=== PATIENT | female | born 1945 | race Caucasian/White ===

== ENCOUNTER 2017-10-02 15:44 | Inpatient (IN) | payer MEDICARE ==
--- NOTE | 2017-10-02 17:35 | ED Physician Chart ---
ED Chief Complaint/HPI - Patient Information Date Seen:: 10/02/17 Time Seen:: 17:20 Chief Complaint:: anorexia, insomnia and shortness of breath History of Present Illness:: Patient's had anorexia, insomnia and shortness of breath since before . She arrived from [place] on that date but already had the just mentioned symptoms which have continued since then. She's had an about 12 pounds weight loss over last 3 months. She now weighs 61 pound. She also has difficulty walking. Historian:: Patient, Family Member ED Review of Systems - Review of Systems General/Constitutional: Weight loss, Weakness, Loss of appetite Skin: No skin lesions Head: No headache Eyes: No loss of vision ENT: No earache Neck: No neck pain, No swelling Cardio Vascular: No chest pain Pulmonary: No SOB GI: No nausea, No vomiting, No diarrhea Musculoskeletal: No bone or joint pain, No back pain Endocrine: No polyuria, No polydipsia Psychiatric: Prior psych history Hematopoietic: No bruising Allergic/Immuno: No urticaria Neurological: No syncope ED Past Medical History - Past Medical History Past Medical History: HTN, Dyslipidemia, Other (depression, anxiety, hyperlipidemia, dementia; left breast mass since 2003) Family History: Diabetes Melitus Social History: Non Smoker, No Alcohol Surgical History: None Psychiatricy History: Dementia Medication: Reviewed Family Medical History - Family Member Mother Age: 93 Ethnicity: Living Status: Hx Family Cancer: Yes (VAGINAL) Father Age: 79 Ethnicity: Living Status: Hx Family Diabetes: Yes ED Physical Exam - Physical Examination Other Gen/Cons comments:: Cachectic; in no acute distress Head: Atraumatic Eyes: Lids, conjuctiva normal Other Skin comments:: 3 cm hard mass superior left breast ENMT: Oropharynx nl Other ENMT comments:: Poor dental hygiene Neck: No nuchal rigidity Respiratory: Nl effort/Exclusion, Clear to Auscultation Cardio Vascular: RRR, No murmur, gallop, rubs, NL S1 S2 GI: No organomegaly, No hernia, Nondistended Other GI comments:: Scaphoid abdomen : No CVA tenderness Extremities: No tenderness or effusion Neuro/Psych: No focal deficits ED Labs/Radiology/EKG Results - Lab Results Results: Laboratory Results - last 24 hr 10/02/17 10/02/1718 15:54 17:58 17:58 WBC 8.0 RBC 3.85 Hgb 12.9 Hct 37.4 L MCV 97.0 MCH 33.5 H MCHC Differential 34.5 RDW 13.1 Plt Count 366 MPV 6.6 Neutrophils % [employer] Band Neutrophils % 10 Lymphocytes % [employer] Monocytes % [employer] Eosinophils % [employer] Basophils % [employer] Neutrophils (Manual) 79 Lymphocytes 5 L Monocytes 5 Eosinophils 1 Basophils 0 Platelet Estimate ADEQUATE Platelet Morphology NORMAL RBC Morph Micro Appear NORMAL Sodium 138 Potassium 3.7 Chloride 108 H Carbon Dioxide 25.0 Anion Gap 8.7 BUN 16 Creatinine 0.7 Est GFR ( Amer) TNP Est GFR (Non-Af Amer) TNP BUN/Creatinine Ratio 22.9 Glucose 134 H Calcium 9.1 Magnesium 2.4 Urine Source RANDOM Urine Color YELLOW Urine Clarity CLEAR Urine pH 7.0 Ur Specific [place] 1.010 Urine Protein NEGATIVE Urine Glucose (UA) NEGATIVE Urine Ketones TRACE Urine Blood NEGATIVE Urine Nitrate NEGATIVE Urine Bilirubin NEGATIVE Urine Urobilinogen 2.0 Ur Leukocyte Esterase NEGATIVE Urine RBC NONE SEEN Urine WBC NONE SEEN Ur Epithelial Cells NONE SEEN Urine Bacteria NONE SEEN - Radiology Results Results: Chest x-ray showed stool in the left upper quadrant; was otherwise negative. - EKG Interpretations Rate & Rhythm: normal sinus rhythm with a rate 85; normal axis; low voltage Comments:: Old septal myocardial infarction ED Septic Shock - . Is Septic Shock (SBP<90, OR Lactate>4 mmol\L) present?: No ED Reassessment (Disposition) - Reassessment Reassessment Condition:: Unchanged - Diagnosis Diagnosis:: Cachexia; left breast mass - Patient Disposition Admitted to:: Telemetry Admitting Medical Physician:: Pramod Cee Condition at Disposition:: Stable, Unchanged
[2017-10-02 18:04] LABS: HEMATOCRIT 37.4 % (41.0-60); HEMOGLOBIN 12.9 gm/dL (12-16); MEAN CORPUSCULAR HEMOGLOBIN 33.5 pg (27.0-31.0); MEAN CORPUSCULAR HGB CONC 34.5 pg (28.0-36.0); MEAN PLATELET VOLUME 6.6 fl; PLATELET COUNT 366 Th/cmm (150-400); RED BLOOD COUNT 3.85 Mil/cmm (3.80-5.20); RED CELL DISTRIBUTION WIDTH 13.1 % (11.5-20.0)
[2017-10-02 18:09] LABS: URINE MICROSCOPIC INDICATED? YES; URINE SOURCE RANDOM
[2017-10-02 18:13] LABS: URINE BILIRUBIN NEGATIVE (NEGATIVE); URINE BLOOD NEGATIVE (NEGATIVE); URINE GLUCOSE (UA) NEGATIVE (NEGATIVE); URINE KETONE TRACE mg/dL (NEGATIVE); URINE LEUKOCYTE ESTERASE NEGATIVE (NEGATIVE); URINE NITRATE NEGATIVE (NEGATIVE); URINE PROTEIN NEGATIVE (NEGATIVE)
[2017-10-02 18:21] LABS: ANION GAP 8.7 (7.0-16.0); BUN - UREA NITROGEN 16 mg/dL (7-25); CALCIUM SERUM 9.1 mg/dL (8.6-10.3); CHLORIDE 108 mEq/L (98-107); CREATININE - SERUM 0.7 mg/dL (0.6-1.2); GLUCOSE 134 mg/dL (70-105); MAGNESIUM 2.4 mg/dL (1.9-2.7); POTASSIUM SERUM 3.7 mEq/L (3.5-5.1); SODIUM SERUM 138 mEq/L (136-145)
[2017-10-02 18:26] LABS: URINE CLARITY CLEAR (CLEAR); URINE COLOR YELLOW
[2017-10-02 18:27] LABS: URINE BACTERIA NONE SEEN /hpf (NONE SEEN); URINE EPITHELIAL CELLS NONE SEEN /lpf (FEW); URINE RBC NONE SEEN /hpf (0-5); URINE WBC NONE SEEN /hpf (0-5)
[2017-10-02 19:04] LABS: TOTAL CELLS COUNTED 100
[2017-10-02 19:05] LABS: BAND NEUTROPHILE 10 % (0-10); BASOPHIL 0 % (0-3); EOSINOPHIL 1 % (0-5); LYMPHOCYTE 5 % (20-50); MONOCYTE 5 % (2-10); NEUTROPHILS 79 % (40-80); PLATELET ESTIMATE ADEQUATE (NORMAL); PLATELET MORPHOLOGY NORMAL (NORMAL)
[2017-10-02] MEDS ORDERED: Albuterol Nebulizer 2.5mg/3mL HHN STA (19:32)
[2017-10-02] MEDS ORDERED: Sodium Chloride 0.9% 500 ML IV ONE (22:12)
[2017-10-02 23:22] VITALS: BP 116/48
[2017-10-02] MEDS ORDERED: Pneumococcal Vaccine 0.5 mL Vial IM ONE (23:33)
[2017-10-03] MEDS: D5-0.45NS 1,000 ML IV SCH ×2 (01:40→15:00)
[2017-10-03 06:22] LABS: % EOSINOPHILS 0.3 % (0.0-5.0); % LYMPHOCYTES 6.7 % (20.0-50.0); % MONOCYTES 5.7 % (2.0-10.0); % NEUTROPHILS 87.3 % (40.0-80.0); HEMATOCRIT 35.1 % (41.0-60); HEMOGLOBIN 11.8 gm/dL (12-16); LYMPHOCYTE ABSOLUTE 0.4 Th/cmm (1.5-3.0); MEAN CELL VOLUME 97.3 fl (81-100); MEAN CORPUSCULAR HEMOGLOBIN 32.8 pg (27.0-31.0); MEAN CORPUSCULAR HGB CONC 33.7 pg (28.0-36.0); MEAN PLATELET VOLUME 6.9 fl; MONOCYTE ABSOLUTE 0.4 Th/cmm (0.3-1.0); NEUTROPHILE ABSOLUTE 5.8 Th/cmm (1.8-8.0); PLATELET COUNT 342 Th/cmm (150-400); RED BLOOD COUNT 3.61 Mil/cmm (3.80-5.20); WHITE BLOOD COUNT 6.6 Th/cmm (4.8-10.8)
[2017-10-03 06:38] LABS: CHOLESTEROL 159 mg/dL (<200); HDL -HIGH DENSITY LIPOPROTEIN 43 mg/dL (23-92); TRIGLYCERIDES 113 mg/dL (<150)
--- NOTE | 2017-10-03 08:14 | Diagnostic Imaging Report ---
Exam: Chest portable examination HISTORY: lung mass Findings: Portable examination of the chest at 1804 hours reviewed, no prior studies available comparison. Bony thorax is intact. Mediastinal structures midline the heart is not enlarged the costophrenic angles are clear. COPD changes are noted. There is evidence for multiple calcifications in the lateral chest wall most likely represent subcutaneous ossifications in the breast tissue clinical correlation recommended. Compression oh studies for be helpful. If clinically indicated CT examination of chest done be helpful. IMPRESSION: 1. COPD changes no acute disease Multiple subcutaneous calcifications appear to be in the left lateral chest wall or in breast tissue laterally. Clinical correlation recommended.
[2017-10-03 12:43] LABS: ALB/GLOB RATIO 1.6 (1.0-1.8); ALBUMIN 3.1 gm/dL (3.7-5.3); ALKALINE PHOSPHATASE 57 U/L (34-104); BILIRUBIN,TOTAL 0.6 mg/dL (0.3-1.0); BUN - UREA NITROGEN 8 mg/dL (7-25); CHLORIDE 108 mEq/L (98-107); CREATININE - SERUM 0.3 mg/dL (0.6-1.2); GLUCOSE 101 mg/dL (70-105); POTASSIUM SERUM 3.1 mEq/L (3.5-5.1); SGOT 15 U/L (13-39); SGPT/ALT 11 U/L (7-52); TOTAL PROTEIN,SERUM 5.1 gm/dL (6.0-8.3)
[2017-10-03 12:46] LABS: ANION GAP 7.1 (7.0-16.0); SODIUM SERUM 137 mEq/L (136-145)
[2017-10-03] MEDS ORDERED: VTE Chemical Prophylaxis Screen/Admission MC PRN (17:01)
--- NOTE | 2017-10-03 19:01 | Consultation ---
DATE OF CONSULTATION: 10/03/2017 HEMATOLOGY AND ONCOLOGY CONSULTATION REFERRING PHYSICIAN: Dr. Cee. REASON FOR CONSULTATION: Left breast mass. HISTORY OF PRESENT ILLNESS: The patient is a 72-year-old female who was admitted to the hospital with wasting syndrome and anorexia and failure to thrive. The chest x-ray reported left subcutaneous nodule, therefore I was asked to evaluate. PAST MEDICAL HISTORY: Hypertension, dyslipidemia, depression, anxiety, dementia, and left breast mass since 2003. MEDICATIONS: Reviewed. PHYSICAL EXAMINATION: GENERAL: The patient is cachectic, awake, not in respiratory distress. VITAL SIGNS: Stable. NECK: No lymphadenopathy. CHEST: Equal air entry. Left breast palpable mass, mobile. No axillary adenopathy. There is hyperpigmentation on the left side of the chest. Right breast unremarkable. ABDOMEN: Soft. EXTREMITIES: Wasted muscles. LABORATORY WORK: Liver functions is normal. White count and platelets normal. Hemoglobin 11.8. Potassium 3.1 after hydration. ASSESSMENT: Left breast mass. The patient is aware and refused biopsy in the past. The mass is mobile and most likely left breast cancer. I will obtain tumor marker CA 27-[address] scan of the chest, abdomen and pelvis. The patient does not have neurological symptoms to warrant doing a brain MRI and she opts no biopsy and therefore no treatment can be addressed without pathology diagnosis. Thank you Dr. Cee for the opportunity to participate in the care of this interesting case with you. JOB# [id number]
--- NOTE | 2017-10-03 19:45 | History and Physical ---
History of Present Illness - HPI Chief Complaint: weight loss, sob HPI: History of Present Illness:: This is a 72 year old female who has a 1 year history of weight loss and insomnia. According to patient just this week she has been having increase of sob and unable to sleep. She also states that she has lost 12lbs in a 3 month period. She complains of weakness and unable to walk as much. Patient also complains of epigastric pain. Vital Signs: Last Vital Signs Temp 98.0 F 10/03/17 10:00 Pulse 69 10/03/17 10:00 Resp 20 10/03/17 10:00 BP 114/57 10/03/17 10:00 Pulse Ox 95 10/03/17 10:00 Past Medical History Other History: HTN, Dyslipidemia, Other (depression, anxiety, hyperlipidemia, dementia; left breast mass since 2003) Family Medical History - Family Member Mother History Unknown: Yes Age: 93 Ethnicity: Living Status: Hx Family Cancer: Yes (VAGINAL) Father History Unknown: Yes Age: 79 Ethnicity: Living Status: Hx Family Diabetes: Yes Social History Smoke: No Alcohol: None Drugs: None Lives: With Family - Medications Home Medications: Home Medication Medication Instructions Recorded Type Lorazepam [Ativan] 0.5 tab PO DAILY 10/02/17 History - Allergies Allergies/Adverse Reactions: Allergies Allergy/AdvReac Type Severity Reaction Status Date / Time Penicillins [PCN] Allergy RASH Verified 10/02/17 18:09 Review of Systems - Review of Systems Constitutional: Report: Weakness, Other (weight loss) Eyes: Report: No Significant Respiratory: Report: Cough, SOB with Excertion Cardiovascular: Report: No Significant Neurological: Report: Weakness Physical Exam - Physical Exam HEENT: Report: Ears Nose Throat within normal limits Neck: Report: Within normal limits Cardiovascular Systems: Report: +s1/s2 noted Respiratory: Report: Breath Sounds are within normal limits Back: Report: Inspection of back is within normal limits. Skin: Report: Warm, Dry Neuro/Psych: Report: Mood affect is within normal limits - Lab Results All Lab Results last 24 hours: Laboratory Results - last 24 hr 10/03/17 10/03/17 10/03/17 06:10 06:10 06:10 WBC 6.6 RBC 3.61 L Hgb 11.8 L Hct 35.1 L MCV 97.3 MCH 32.8 H MCHC Differential 33.7 RDW 13.0 Plt Count 342 MPV 6.9 Neutrophils % 87.3 H Lymphocytes % 6.7 L Monocytes % 5.7 Eosinophils % 0.3 Basophils % 0.0 Sodium Cancelled Potassium Cancelled Chloride Cancelled Carbon Dioxide Cancelled Anion Gap Cancelled BUN Cancelled Creatinine Cancelled Est GFR ( Amer) Cancelled Est GFR (Non-Af Amer) Cancelled BUN/Creatinine Ratio Cancelled Glucose Cancelled Calcium Cancelled Total Bilirubin AST ALT Alkaline Phosphatase Total Protein Albumin Globulin Albumin/Globulin Ratio Triglycerides 113 Cholesterol 159 LDL Cholesterol Direct 104 HDL Cholesterol 43 TSH 2.82 10/03/17 06:10 WBC RBC Hgb Hct MCV MCH MCHC Differential RDW Plt Count MPV Neutrophils % Lymphocytes % Monocytes % Eosinophils % Basophils % Sodium 137 Potassium 3.1 L Chloride 108 H Carbon Dioxide 25.0 Anion Gap 7.1 BUN 8 Creatinine 0.3 L Est GFR ( Amer) TNP Est GFR (Non-Af Amer) TNP BUN/Creatinine Ratio 26.7 Glucose 101 Calcium 8.0 L Total Bilirubin 0.6 AST 15 ALT 11 Alkaline Phosphatase 57 Total Protein 5.1 L Albumin 3.1 L Globulin 2.0 Albumin/Globulin Ratio 1.6 Triglycerides Cholesterol LDL Cholesterol Direct HDL Cholesterol TSH - Assessment Assessment: malnutrition anorexia hypotension copd hx left breast mass - Plan Plan: hematology/oncology consultation ivf for hydration supplemental oxygen gi consultation continue current orders
[2017-10-04 06:46] LABS: % BASOPHILS 0.6 % (0.0-2.0); % EOSINOPHILS 0.3 % (0.0-5.0); % MONOCYTES 7.3 % (2.0-10.0); % NEUTROPHILS 84.8 % (40.0-80.0); HEMOGLOBIN 13.3 gm/dL (12-16); LYMPHOCYTE ABSOLUTE 0.4 Th/cmm (1.5-3.0); MEAN CELL VOLUME 96.4 fl (81-100); MEAN CORPUSCULAR HEMOGLOBIN 32.5 pg (27.0-31.0); MEAN CORPUSCULAR HGB CONC 33.7 pg (28.0-36.0); MEAN PLATELET VOLUME 7.2 fl; MONOCYTE ABSOLUTE 0.4 Th/cmm (0.3-1.0); PLATELET COUNT 360 Th/cmm (150-400); RED BLOOD COUNT 4.08 Mil/cmm (3.80-5.20); RED CELL DISTRIBUTION WIDTH 12.5 % (11.5-20.0); WHITE BLOOD COUNT 5.8 Th/cmm (4.8-10.8)
[2017-10-04 06:51] LABS: HEMATOCRIT 39.4 % (41.0-60)
[2017-10-04 07:02] LABS: ANION GAP 10.5 (7.0-16.0); BUN - UREA NITROGEN 7 mg/dL (7-25); CALCIUM SERUM 8.5 mg/dL (8.6-10.3); CARBON DIOXIDE 23.5 mEq/L (21.0-31.0); CHLORIDE 107 mEq/L (98-107); CREATININE - SERUM 0.4 mg/dL (0.6-1.2); GLUCOSE 84 mg/dL (70-105); SODIUM SERUM 138 mEq/L (136-145)
[2017-10-04 07:20] LABS: INR 1.11 (0.5-1.4); PROTHROMBIN TIME (TEST) 11.6 SECONDS (9.5-11.5)
[2017-10-04] MEDS ORDERED: KCL 20mEq/100mL Premix 20 MEQ/100 ML PIGGYBACK IV ONE (07:54)
--- NOTE | 2017-10-04 07:58 | Consultation ---
DATE OF CONSULTATION: 10/03/2017 REASON FOR CONSULTATION: Weight loss and dysphagia. HISTORY OF PRESENT ILLNESS: This consult was obtained through the courtesy of Dr. Cee for this 72-year-old with history of hypertension, who presented to the hospital by the family for weakness, not eating, difficulty swallowing. According to the patient, who can give her own history, even though she has some psychiatric issues. She has been losing weight since May. She was about 30 pounds since then, but she has always been thin. PAST MEDICAL HISTORY: Hypertension. PAST SURGICAL HISTORY: Cholecystectomy. SOCIAL HISTORY: Nonsmoker, nonalcoholic, and non-IV drug abuser. FAMILY HISTORY: Mother has some sort of cancer. REVIEW OF SYSTEMS: She has lost 30 pounds in the last 4-5 months. She has loose bowel movement today. No nausea, vomiting, no abdominal pain, but she has had food gets struck in her throat. She cannot swallow much. ALLERGIES: Penicillin. MEDICATIONS: The patient is not on any medications at this time. PHYSICAL EXAMINATION: GENERAL: The patient is awake, oriented to self and place, in no acute distress. VITAL SIGNS: Blood pressure is 114/57, heart rate 69, respiratory rate 18, temperature is 98.0. HEAD AND NECK: Pupils reactive to light. Extraocular muscles intact. Sclerae are anicteric. Conjunctivae not pale. Oral cavity, no lesion. NECK: Supple, no jugular venous distention. No carotid lymph node. CHEST: Good respiratory movements. LUNGS: Clear to auscultation. CARDIOVASCULAR: Regular rate and rhythm. No murmur or gallop. ABDOMEN: Soft, positive bowel sounds. The patient is very very thin. EXTREMITIES: Lower extremities, no edema. CENTRAL NERVOUS SYSTEM: Nonfocal. LABORATORY DATA: Hemoglobin 11.8, potassium 3.21. IMPRESSION: A 72-year-old with dysphagia and weight loss. ASSESSMENT AND PLAN: Dysphagia and weight loss, rule out peptic ulcer disease versus upper gastrointestinal malignancy versus depression. RECOMMENDATIONS: 1. EGD. 2. ___. 3. Protonix. 4. Further recommendations to follow. Other medical problem as per Dr. Cee. Thank you, Dr. Cee for allowing me to participate in the care of the patient. If you have any further questions, please let me know. JOB# [id number]
--- NOTE | 2017-10-04 09:47 | GI Progress Note ---
Subjective - Review of Systems Subjective: REFUSE EGD NOT COOPERATIVE WITH WORK UP Objective - Results Result Diagrams: 10/04/17 06:00 10/04/17 06:00 Recent Labs: Laboratory Last Values WBC 5.8 Th/cmm (4.8-10.8) 10/04/17 06:00 RBC 4.08 Mil/cmm (3.80-5.20) 10/04/17 06:00 Hgb 13.3 gm/dL (12-16) 10/04/17 06:00 Hct 39.4 % (41.0-60) L D 10/04/17 06:00 MCV 96.4 fl (81-100) 10/04/17 06:00 MCH 32.5 pg (27.0-31.0) H 10/04/17 06:00 MCHC Differential 33.7 pg (28.0-36.0) 10/04/17 06:00 RDW 12.5 % (11.5-20.0) 10/04/17 06:00 Plt Count 360 Th/cmm (150-400) 10/04/17 06:00 MPV 7.2 fl 10/04/17 06:00 Neutrophils % 84.8 % (40.0-80.0) H 10/04/17 06:00 Band Neutrophils % 10 % (0-10) 10/02/17 17:58 Lymphocytes % 7.0 % (20.0-50.0) L 10/04/17 06:00 Monocytes % 7.3 % (2.0-10.0) 10/04/17 06:00 Eosinophils % 0.3 % (0.0-5.0) 10/04/17 06:00 Basophils % 0.6 % (0.0-2.0) 10/04/17 06:00 Neutrophils (Manual) 79 % (40-80) 10/02/17 17:58 Lymphocytes 5 % (20-50) L 10/02/17 17:58 Monocytes 5 % (2-10) 10/02/17 17:58 Eosinophils 1 % (0-5) 10/02/17 17:58 Basophils 0 % (0-3) 10/02/17 17:58 Platelet Estimate ADEQUATE (NORMAL) 10/02/17 17:58 Platelet Morphology NORMAL (NORMAL) 10/02/17 17:58 RBC Morph Micro Appear NORMAL (NORMAL) 10/02/17 17:58 PT 11.6 SECONDS (9.5-11.5) H 10/04/17 06:00 INR 1.11 (0.5-1.4) 10/04/17 06:00 Sodium 138 mEq/L (136-145) 10/04/17 06:00 Potassium 3.0 mEq/L (3.5-5.1) L 10/04/17 06:00 Chloride 107 mEq/L (98-107) 10/04/17 06:00 Carbon Dioxide 23.5 mEq/L (21.0-31.0) 10/04/17 06:00 Anion Gap 10.5 (7.0-16.0) 10/04/17 06:00 BUN 7 mg/dL (7-25) 10/04/17 06:00 Creatinine 0.4 mg/dL (0.6-1.2) L 10/04/17 06:00 Est GFR ( Amer) TNP 10/04/17 06:00 Est GFR (Non-Af Amer) TNP 10/04/17 06:00 BUN/Creatinine Ratio 17.5 10/04/17 06:00 Glucose 84 mg/dL (70-105) 10/04/17 06:00 Calcium 8.5 mg/dL (8.6-10.3) L 10/04/17 06:00 Magnesium 2.4 mg/dL (1.9-2.7) 10/02/17 17:58 Total Bilirubin 0.6 mg/dL (0.3-1.0) 10/03/17 06:10 AST 15 U/L (13-39) 10/03/17 06:10 ALT 11 U/L (7-52) 10/03/17 06:10 Alkaline Phosphatase 57 U/L (34-104) 10/03/17 06:10 Total Protein 5.1 gm/dL (6.0-8.3) L 10/03/17 06:10 Albumin 3.1 gm/dL (3.7-5.3) L 10/03/17 06:10 Globulin 2.0 gm/dL 10/03/17 06:10 Albumin/Globulin Ratio 1.6 (1.0-1.8) 10/03/17 06:10 Triglycerides 113 mg/dL (<150) 10/03/17 06:10 Cholesterol 159 mg/dL (<200) 10/03/17 06:10 LDL Cholesterol Direct 104 mg/dL (75-193) 10/03/17 06:10 HDL Cholesterol 43 mg/dL (23-92) 10/03/17 06:10 TSH 2.82 uIU/ml (0.34-5.60) 10/03/17 06:10 Urine Source RANDOM 10/02/17 15:54 Urine Color YELLOW 10/02/17 15:54 Urine Clarity CLEAR (CLEAR) 10/02/17 15:54 Urine pH 7.0 (4.6 - 8.0) 10/02/17 15:54 Ur Specific [place] 1.010 (1.005-1.030) 10/02/17 15:54 Urine Protein NEGATIVE mg/dL (NEGATIVE) 10/02/17 15:54 Urine Glucose (UA) NEGATIVE mg/dL (NEGATIVE) 10/02/17 15:54 Urine Ketones TRACE mg/dL (NEGATIVE) 10/02/17 15:54 Urine Blood NEGATIVE (NEGATIVE) 10/02/17 15:54 Urine Nitrate NEGATIVE (NEGATIVE) 10/02/17 15:54 Urine Bilirubin NEGATIVE (NEGATIVE) 10/02/17 15:54 Urine Urobilinogen 2.0 E.U./dL (0.2 - 1.0) 10/02/17 15:54 Ur Leukocyte Esterase NEGATIVE (NEGATIVE) 10/02/17 15:54 Urine RBC NONE SEEN /hpf (0-5) 10/02/17 15:54 Urine WBC NONE SEEN /hpf (0-5) 10/02/17 15:54 Ur Epithelial Cells NONE SEEN /lpf (FEW) 10/02/17 15:54 Urine Bacteria NONE SEEN /hpf (NONE SEEN) 10/02/17 15:54 - Physical Exam Vitals and I&O: Vital Signs Temp 97.3 F 10/04/17 04:00 Pulse 74 10/04/17 04:00 Resp 18 10/04/17 04:00 BP 112/46 10/04/17 04:00 Pulse Ox 95 10/04/17 04:00 Intake & Output 10/03/17 10/04/17 10/04/17 18:59 06:59 18:59 Intake Total 1000 Balance 1000 Weight (lbs) 40.37 kg Intake: Intake, IV Amount 1000 D5-0.45NS 1,000 ml @ 75 1000 mls/hr IV .[id number] [facility] Rx #:[id number] Other: Stool Characteristics Liquid Liquid Brown Brown Active Medications: Current Medications Heparin Sodium (Porcine) (Heparin) 5,000 units SUBQ Q12H [facility] Stop: 12/02/17 20:59 Last Admin: 10/03/17 22:46 Dose: Not Given Dextrose/Sodium Chloride (D5-0.45ns) 1,000 mls @ 75 mls/hr IV .[id number] [facility] Stop: 12/01/17 22:59 Last Admin: 10/03/17 15:00 Dose: 75 mls/hr Potassium Chloride (Potassium Chloride) 20 meq in 100 mls @ 50 mls/hr IV X1 ONE Stop: 10/04/17 09:53 Mirtazapine (Remeron) 7.5 mg PO HS SAMY PRN Reason: Protocol Stop: 12/02/17 20:59 Last Admin: 10/03/17 22:45 Dose: 7.5 mg Miscellaneous (Vte Chemical Prophylaxis Screen/ Admission) 1 ea [facility] PRN PRN PRN Reason: PROTOCOL Stop: 12/02/17 17:00 Pantoprazole Sodium (Protonix) 40 mg IVP QDAC [facility] Stop: 12/02/17 13:14 Last Admin: 10/04/17 06:39 Dose: Not Given Assessment/Plan - Assessment Assessment: 72 YO FEMALE WITH MALNUTRITION REFUSING EGD AND WORK UP 1.CONT SUPP CARE 2.CONSIDER CT IF PT AGREES AN ALTERNATIVE
--- NOTE | 2017-10-04 14:46 | General Progress Note ---
Subjective - Review of Systems Service Date: 10/04/17 Objective - Results Result Diagrams: 10/04/17 06:00 10/04/17 06:00 Recent Labs: Laboratory Last Values WBC 5.8 Th/cmm (4.8-10.8) 10/04/17 06:00 RBC 4.08 Mil/cmm (3.80-5.20) 10/04/17 06:00 Hgb 13.3 gm/dL (12-16) 10/04/17 06:00 Hct 39.4 % (41.0-60) L D 10/04/17 06:00 MCV 96.4 fl (81-100) 10/04/17 06:00 MCH 32.5 pg (27.0-31.0) H 10/04/17 06:00 MCHC Differential 33.7 pg (28.0-36.0) 10/04/17 06:00 RDW 12.5 % (11.5-20.0) 10/04/17 06:00 Plt Count 360 Th/cmm (150-400) 10/04/17 06:00 MPV 7.2 fl 10/04/17 06:00 Neutrophils % 84.8 % (40.0-80.0) H 10/04/17 06:00 Band Neutrophils % 10 % (0-10) 10/02/17 17:58 Lymphocytes % 7.0 % (20.0-50.0) L 10/04/17 06:00 Monocytes % 7.3 % (2.0-10.0) 10/04/17 06:00 Eosinophils % 0.3 % (0.0-5.0) 10/04/17 06:00 Basophils % 0.6 % (0.0-2.0) 10/04/17 06:00 Neutrophils (Manual) 79 % (40-80) 10/02/17 17:58 Lymphocytes 5 % (20-50) L 10/02/17 17:58 Monocytes 5 % (2-10) 10/02/17 17:58 Eosinophils 1 % (0-5) 10/02/17 17:58 Basophils 0 % (0-3) 10/02/17 17:58 Platelet Estimate ADEQUATE (NORMAL) 10/02/17 17:58 Platelet Morphology NORMAL (NORMAL) 10/02/17 17:58 RBC Morph Micro Appear NORMAL (NORMAL) 10/02/17 17:58 PT 11.6 SECONDS (9.5-11.5) H 10/04/17 06:00 INR 1.11 (0.5-1.4) 10/04/17 06:00 Sodium 138 mEq/L (136-145) 10/04/17 06:00 Potassium 3.0 mEq/L (3.5-5.1) L 10/04/17 06:00 Chloride 107 mEq/L (98-107) 10/04/17 06:00 Carbon Dioxide 23.5 mEq/L (21.0-31.0) 10/04/17 06:00 Anion Gap 10.5 (7.0-16.0) 10/04/17 06:00 BUN 7 mg/dL (7-25) 10/04/17 06:00 Creatinine 0.4 mg/dL (0.6-1.2) L 10/04/17 06:00 Est GFR ( Amer) TNP 10/04/17 06:00 Est GFR (Non-Af Amer) TNP 10/04/17 06:00 BUN/Creatinine Ratio 17.5 10/04/17 06:00 Glucose 84 mg/dL (70-105) 10/04/17 06:00 Calcium 8.5 mg/dL (8.6-10.3) L 10/04/17 06:00 Magnesium 2.4 mg/dL (1.9-2.7) 10/02/17 17:58 Total Bilirubin 0.6 mg/dL (0.3-1.0) 10/03/17 06:10 AST 15 U/L (13-39) 10/03/17 06:10 ALT 11 U/L (7-52) 10/03/17 06:10 Alkaline Phosphatase 57 U/L (34-104) 10/03/17 06:10 Total Protein 5.1 gm/dL (6.0-8.3) L 10/03/17 06:10 Albumin 3.1 gm/dL (3.7-5.3) L 10/03/17 06:10 Globulin 2.0 gm/dL 10/03/17 06:10 Albumin/Globulin Ratio 1.6 (1.0-1.8) 10/03/17 06:10 Triglycerides 113 mg/dL (<150) 10/03/17 06:10 Cholesterol 159 mg/dL (<200) 10/03/17 06:10 LDL Cholesterol Direct 104 mg/dL (75-193) 10/03/17 06:10 HDL Cholesterol 43 mg/dL (23-92) 10/03/17 06:10 TSH 2.82 uIU/ml (0.34-5.60) 10/03/17 06:10 Urine Source RANDOM 10/02/17 15:54 Urine Color YELLOW 10/02/17 15:54 Urine Clarity CLEAR (CLEAR) 10/02/17 15:54 Urine pH 7.0 (4.6 - 8.0) 10/02/17 15:54 Ur Specific [place] 1.010 (1.005-1.030) 10/02/17 15:54 Urine Protein NEGATIVE mg/dL (NEGATIVE) 10/02/17 15:54 Urine Glucose (UA) NEGATIVE mg/dL (NEGATIVE) 10/02/17 15:54 Urine Ketones TRACE mg/dL (NEGATIVE) 10/02/17 15:54 Urine Blood NEGATIVE (NEGATIVE) 10/02/17 15:54 Urine Nitrate NEGATIVE (NEGATIVE) 10/02/17 15:54 Urine Bilirubin NEGATIVE (NEGATIVE) 10/02/17 15:54 Urine Urobilinogen 2.0 E.U./dL (0.2 - 1.0) 10/02/17 15:54 Ur Leukocyte Esterase NEGATIVE (NEGATIVE) 10/02/17 15:54 Urine RBC NONE SEEN /hpf (0-5) 10/02/17 15:54 Urine WBC NONE SEEN /hpf (0-5) 10/02/17 15:54 Ur Epithelial Cells NONE SEEN /lpf (FEW) 10/02/17 15:54 Urine Bacteria NONE SEEN /hpf (NONE SEEN) 10/02/17 15:54 - Physical Exam Vitals and I&O: Vital Signs Temp 96.7 F 10/04/17 08:00 Pulse 98 10/04/17 08:00 Resp 18 10/04/17 12:00 BP 113/66 10/04/17 08:00 Pulse Ox 97 10/04/17 08:00 Intake & Output 10/03/17 10/04/17 10/04/17 18:59 06:59 18:59 Intake Total 1000 Balance 1000 Weight (lbs) 40.37 kg Intake: Intake, IV Amount 1000 D5-0.45NS 1,000 ml @ 75 1000 mls/hr IV .[id number] [facility] Rx #:[id number] Other: Stool Characteristics Liquid Liquid Brown Brown Active Medications: Current Medications Escitalopram Oxalate (Lexapro) 5 mg PO DAILY SAMY PRN Reason: Protocol Stop: 12/03/17 16:59 Haloperidol Lactate (Haldol Concentrate 10mg/5ml Susp) 0.5 mg PO BID SAMY PRN Reason: Protocol Stop: 12/03/17 16:59 Heparin Sodium (Porcine) (Heparin) 5,000 units SUBQ Q12H [facility] Stop: 12/02/17 20:59 Last Admin: 10/04/17 10:17 Dose: Not Given Dextrose/Sodium Chloride (D5-0.45ns) 1,000 mls @ 75 mls/hr IV .[id number] [facility] Stop: 12/01/17 22:59 Last Admin: 10/03/17 15:00 Dose: 75 mls/hr Mirtazapine (Remeron) 7.5 mg PO HS [facility]Y PRN Reason: Protocol Stop: 12/02/17 20:59 Last Admin: 10/03/17 22:45 Dose: 7.5 mg Miscellaneous (Vte Chemical Prophylaxis Screen/ Admission) 1 ea [facility] PRN PRN PRN Reason: PROTOCOL Stop: 12/02/17 17:00 Pantoprazole Sodium (Protonix) 40 mg IVP QDAC [facility] Stop: 12/02/17 13:14 Last Admin: 10/04/17 06:39 Dose: Not Given General: Alert HEENT: Atraumatic Cardiovascular: Regular rate Lungs: Clear to auscultation Abdomen: Soft Other physical findings: left breast mass Assessment/Plan - Assessment Assessment: * left breast mass refused CT and EGD FOLLOW CA27 Nutritional Asmnt/Malnutr-PDOC - Dietary Evaluation Malnutrition Findings (Please click <Entered> for more info): Nutritional Asmnt/Malnutrition Start: 10/03/17 16: 43 Text: Status: Complete Freq: Document 10/03/17 16:44 CHANTELLE (Rec: 10/03/17 17:10 CHANTELLE [id number]) Nutritional Asmnt/Malnutrition Patient General Information Nutritional Screening High Risk Consult Diagnosis malnutrition, hypotension, weight loss Pertinent Medical Hx/Surgical Hx HTN, dyslipidemia, depression, anxiety, hyperlipidemia, dementia, left breast mass Subjective Information Consult received for malnutrition. Pt seen lying in bed, awake and alert. Pt reported no appetite at all, has difficulty of chewing regular food and swallowing any food or liquid. Family at bed side, reported pt was trying to pull out IV. Explained to pt the importance of keeping hydration. Spoke with RN, pt was paranoid, refuse any food or fluid; pt will be NPO for CT tommorrow. Per H&P, pt had wt loss of 12# in 3 month. Current Diet Order/ Nutrition Support soft bland Pertinent Medications D5-0.45ns, remeron, protonix Pertinent Labs 2/2 Na 127, K 3.1, Cl 108, BUN 8, Cr 0.3, Glucose 101, Ca 8. 0, ALb 3.1 2/1 mg 2.4 Nutritional Hx/Data Height 1.57 m Height (Calculated Centimeters) 157.5 Current Weight (lbs) 29.484 kg Weight (Calculated Kilograms) 29.5 Weight (Calculated Grams) 36227.5 [place] Body Weight 110 % [place] Body Weight 59 Body Mass Index (BMI) 11.9 Weight Status Underweight GI Symptoms Last BM no record Difficult in: Chewing Swallowing Skin Integrity/Comment: reddeded to right and left foot, coccyx Current %PO Negligible < 25% Estimated Nutritional Goals Calories/Kcals/Kg 25-30 based on IBW 50kg Kcals Calculated 3552-5515 Protein g/k.2-1.4 Protein Calculated 60-70 Fluid: ml 1250-1500ml (1ml/kcal) Nutritional Problem 2. Problem Problem inadequate food intake Etiology no appetitie and difficulty of chewing and swallowing Signs/Symptoms: pt refusing any food or liquid 1. Problem Problem underweight Etiology poor PO intake, difficulty of chewing and swallowing Signs/Symptoms: BMI 11.9 Malnutrition Alert Body Fat Depletion (Severe) Mod to Severe Depletion Muscle Mass (Severe) Mod to Severe Depletion Is there a minimum of two criteria Yes selected? Query Text:Check all the applicable criteria. A minimum of two criteria are recommended for diagnosis of either severe or non-severe malnutrition. Intervention/Recommendation Comments 1. Recommend swallow eval considering chewing and swallowing difficulty. RN made aware. If pt not able to take oral food, will consider alternative nutrition route. 2. Monitor PO intake, wt, labs and skin integrity 3. F/U as high risk in 2-3 days, 2/4-2/5 Expected Outcomes/Goals Expected Outcomes/Goals 1. PO intake to meet at least 75% of nutritional needs. 2. Wt stability, skin to remain intact, labs to approach WNL.
--- NOTE | 2017-10-04 15:06 | Consultation ---
DATE OF CONSULTATION: 10/04/2017 PHYSICIAN REQUESTING CONSULTATION: Dr. Cee. REASON FOR CONSULTATION: Depression and psychosis. HISTORY OF PRESENT ILLNESS: This patient is a 72-year-old living with her and niece. Information obtained by directly interviewing the patient and talking to the family members. The patient is reported to have been refusing to eat for the past 4 weeks and has been becoming difficult for the family to take care of her. The patient is reported to have been originally in [facility] then came down to [place] 6 months ago. The patient has been noted to be very paranoid and has been accusing the staff of trying to kill her. The patient has taken her IV fluids out and the patient is refusing to have any tests to be done at this time. The patient is very reluctant and the patient is reported to have been acting very paranoid and bizarre and getting easily agitated. The patient is stating that she does not want any treatment to be done and she wants to and social security has to go to her and the children and the patient is very fixated on ending her life. PAST PSYCHIATRIC HISTORY: Details are not known. The patient denies any prior psychiatric hospitalizations. SOCIAL HISTORY: The patient is living with her and niece is there by the bedside who is caring for the patient. SEXUAL ABUSE HISTORY: None. PHYSICAL OR SEXUAL ABUSE HISTORY: None. LEGAL PROBLEMS: None at this time. MENTAL STATUS EXAMINATION: The patient is a 72-year-old thin built, emaciated. Mood is depressed. Affect is constricted. Insight and judgment are very much impaired. Impulse control seems to be poor. Coping skills are also noted to be very poor. The patient is insisting on having her way and refusing to comply with any of the medications. The patient has been having difficult time to cope with the stress at this time. The patient is not homicidal. The patient is very paranoid and has been accusing the staff of trying to kill her with the medications. DIAGNOSES AT THE TIME OF EVALUATION: Major depressive disorder, first episode with psychotic symptoms. IMMEDIATE TREATMENT PLAN: The patient is going to be started on Lexapro 5 mg and Haldol 0.5 mg twice a day and the patient is going to be closely monitored. Once stabilized, the patient is going to be discharged. JOB# [id number]
--- NOTE | 2017-10-04 19:04 | Progress Notes ---
DATE: 10/04/2017 SUBJECTIVE: The patient was seen in her room, lying in the bed. The patient appears to be paranoid and suspicious. According to nurses, the patient supposedly to undergo EGD, but the patient refused treatment and her current potassium level today is 3.0, otherwise the patient appears to be in no acute distress. OBJECTIVE: VITAL SIGNS: Temperature 97.3, heart rate 74, respirations of 18, blood pressure 112/46, 95% on room air. HEENT: Head is atraumatic and normocephalic. Eyes: Bilateral conjunctivae are clear. Bilateral pupils are equally round and reactive. NECK: Supple. No JVD. CARDIOVASCULAR: S1 and S2 without murmur. PULMONARY: Clear to auscultation. GASTROINTESTINAL: Soft and nontender without guarding. Positive bowel sounds. MUSCULOSKELETAL: No clubbing. No cyanosis noted. ASSESSMENT: 1. Cachexia. 2. Anorexia. 3. Chronic obstructive pulmonary disease. 4. Hypokalemia. PLAN: We will hold EGD and we will try to discuss it again with the patient and also going to replace the patient's potassium level today. We will give the patient 20 mEq of KCl by K-rider and also going to monitor the patient's nutritional status. Also pending for psychiatric consult. Treatment plans were discussed with the patient's nurse. Treatment plans were discussed with Dr. Cee. JOB# [id number]
[2017-10-05] MEDS: D5-0.45NS 1,000 ML IV SCH ×2 (03:18→17:01)
[2017-10-05 08:05] LABS: ALB/GLOB RATIO 1.6 (1.0-1.8); ALBUMIN 3.4 gm/dL (3.7-5.3); ALKALINE PHOSPHATASE 65 U/L (34-104); ANION GAP 12.2 (7.0-16.0); BILIRUBIN,TOTAL 0.8 mg/dL (0.3-1.0); BUN - UREA NITROGEN 9 mg/dL (7-25); CALCIUM SERUM 8.6 mg/dL (8.6-10.3); CARBON DIOXIDE 21.4 mEq/L (21.0-31.0); CHLORIDE 106 mEq/L (98-107); CREATININE - SERUM 0.4 mg/dL (0.6-1.2); GLUCOSE 128 mg/dL (70-105); POTASSIUM SERUM 3.6 mEq/L (3.5-5.1); SGOT 16 U/L (13-39); SGPT/ALT 12 U/L (7-52); SODIUM SERUM 136 mEq/L (136-145); TOTAL PROTEIN,SERUM 5.6 gm/dL (6.0-8.3)
--- NOTE | 2017-10-05 08:52 | GI Progress Note ---
Subjective - Review of Systems Subjective: NO EVENTS Objective - Results Result Diagrams: 10/04/17 06:00 10/05/17 05:44 Recent Labs: Laboratory Last Values WBC 5.8 Th/cmm (4.8-10.8) 10/04/17 06:00 RBC 4.08 Mil/cmm (3.80-5.20) 10/04/17 06:00 Hgb 13.3 gm/dL (12-16) 10/04/17 06:00 Hct 39.4 % (41.0-60) L D 10/04/17 06:00 MCV 96.4 fl (81-100) 10/04/17 06:00 MCH 32.5 pg (27.0-31.0) H 10/04/17 06:00 MCHC Differential 33.7 pg (28.0-36.0) 10/04/17 06:00 RDW 12.5 % (11.5-20.0) 10/04/17 06:00 Plt Count 360 Th/cmm (150-400) 10/04/17 06:00 MPV 7.2 fl 10/04/17 06:00 Neutrophils % 84.8 % (40.0-80.0) H 10/04/17 06:00 Band Neutrophils % 10 % (0-10) 10/02/17 17:58 Lymphocytes % 7.0 % (20.0-50.0) L 10/04/17 06:00 Monocytes % 7.3 % (2.0-10.0) 10/04/17 06:00 Eosinophils % 0.3 % (0.0-5.0) 10/04/17 06:00 Basophils % 0.6 % (0.0-2.0) 10/04/17 06:00 Neutrophils (Manual) 79 % (40-80) 10/02/17 17:58 Lymphocytes 5 % (20-50) L 10/02/17 17:58 Monocytes 5 % (2-10) 10/02/17 17:58 Eosinophils 1 % (0-5) 10/02/17 17:58 Basophils 0 % (0-3) 10/02/17 17:58 Platelet Estimate ADEQUATE (NORMAL) 10/02/17 17:58 Platelet Morphology NORMAL (NORMAL) 10/02/17 17:58 RBC Morph Micro Appear NORMAL (NORMAL) 10/02/17 17:58 PT 11.6 SECONDS (9.5-11.5) H 10/04/17 06:00 INR 1.11 (0.5-1.4) 10/04/17 06:00 Sodium 136 mEq/L (136-145) 10/05/17 05:44 Potassium 3.6 mEq/L (3.5-5.1) 10/05/17 05:44 Chloride 106 mEq/L (98-107) 10/05/17 05:44 Carbon Dioxide 21.4 mEq/L (21.0-31.0) 10/05/17 05:44 Anion Gap 12.2 (7.0-16.0) 10/05/17 05:44 BUN 9 mg/dL (7-25) 10/05/17 05:44 Creatinine 0.4 mg/dL (0.6-1.2) L 10/05/17 05:44 Est GFR ( Amer) TNP 10/05/17 05:44 Est GFR (Non-Af Amer) TNP 10/05/17 05:44 BUN/Creatinine Ratio 22.5 10/05/17 05:44 Glucose 128 mg/dL (70-105) H 10/05/17 05:44 Calcium 8.6 mg/dL (8.6-10.3) 10/05/17 05:44 Magnesium 2.4 mg/dL (1.9-2.7) 10/02/17 17:58 Total Bilirubin 0.8 mg/dL (0.3-1.0) 10/05/17 05:44 AST 16 U/L (13-39) 10/05/17 05:44 ALT 12 U/L (7-52) 10/05/17 05:44 Alkaline Phosphatase 65 U/L (34-104) 10/05/17 05:44 Total Protein 5.6 gm/dL (6.0-8.3) L 10/05/17 05:44 Albumin 3.4 gm/dL (3.7-5.3) L 10/05/17 05:44 Globulin 2.2 gm/dL 10/05/17 05:44 Albumin/Globulin Ratio 1.6 (1.0-1.8) 10/05/17 05:44 Triglycerides 113 mg/dL (<150) 10/03/17 06:10 Cholesterol 159 mg/dL (<200) 10/03/17 06:10 LDL Cholesterol Direct 104 mg/dL (75-193) 10/03/17 06:10 HDL Cholesterol 43 mg/dL (23-92) 10/03/17 06:10 TSH 2.82 uIU/ml (0.34-5.60) 10/03/17 06:10 Urine Source RANDOM 10/02/17 15:54 Urine Color YELLOW 10/02/17 15:54 Urine Clarity CLEAR (CLEAR) 10/02/17 15:54 Urine pH 7.0 (4.6 - 8.0) 10/02/17 15:54 Ur Specific [place] 1.010 (1.005-1.030) 10/02/17 15:54 Urine Protein NEGATIVE mg/dL (NEGATIVE) 10/02/17 15:54 Urine Glucose (UA) NEGATIVE mg/dL (NEGATIVE) 10/02/17 15:54 Urine Ketones TRACE mg/dL (NEGATIVE) 10/02/17 15:54 Urine Blood NEGATIVE (NEGATIVE) 10/02/17 15:54 Urine Nitrate NEGATIVE (NEGATIVE) 10/02/17 15:54 Urine Bilirubin NEGATIVE (NEGATIVE) 10/02/17 15:54 Urine Urobilinogen 2.0 E.U./dL (0.2 - 1.0) 10/02/17 15:54 Ur Leukocyte Esterase NEGATIVE (NEGATIVE) 10/02/17 15:54 Urine RBC NONE SEEN /hpf (0-5) 10/02/17 15:54 Urine WBC NONE SEEN /hpf (0-5) 10/02/17 15:54 Ur Epithelial Cells NONE SEEN /lpf (FEW) 10/02/17 15:54 Urine Bacteria NONE SEEN /hpf (NONE SEEN) 10/02/17 15:54 - Physical Exam Vitals and I&O: Vital Signs Temp 98.2 F 10/05/17 04:00 Pulse 111 10/05/17 04:00 Resp 20 10/05/17 04:00 BP 118/65 10/05/17 04:00 Pulse Ox 97 10/05/17 04:00 Intake & Output 10/04/17 10/05/17 10/05/17 18:59 06:59 18:59 Intake Total 350 10 Balance 350 10 Weight (lbs) 27.669 kg 27.669 kg Intake: Oral 350 10 Other: # Voids 4 3 # Bowel Movements 3 0 Stool Characteristics Soft Soft Active Medications: Current Medications Escitalopram Oxalate (Lexapro) 5 mg PO DAILY SAMY PRN Reason: Protocol Stop: 12/03/17 16:59 Haloperidol Lactate (Haldol Concentrate 10mg/5ml Susp) 0.5 mg PO BID [facility]Y PRN Reason: Protocol Stop: 12/03/17 16:59 Heparin Sodium (Porcine) (Heparin) 5,000 units SUBQ Q12H [facility] Stop: 12/02/17 20:59 Last Admin: 10/04/17 21:19 Dose: 5,000 units Dextrose/Sodium Chloride (D5-0.45ns) 1,000 mls @ 75 mls/hr IV .[id number] [facility] Stop: 12/01/17 22:59 Last Admin: 10/05/17 03:18 Dose: 75 mls/hr Lisinopril (Zestril) 5 mg PO DAILY [facility]Y Stop: 12/04/17 08:59 Lorazepam (Ativan) 1 mg PO Q6HR PRN; Protocol PRN Reason: Anxiety Stop: 12/03/17 18:57 Lorazepam (Ativan) 0.5 mg PO DAILY SAMY PRN Reason: Protocol Stop: 12/04/17 08:59 Lorazepam (Ativan) 1 mg IVP Q6HR PRN; Protocol PRN Reason: Agitation Stop: 12/04/17 00:12 Last Admin: 10/05/17 00:25 Dose: 1 mg Megestrol Acetate (Megace) 400 mg PO BID [facility]Y PRN Reason: Protocol Stop: 12/04/17 08:59 Mirtazapine (Remeron) 7.5 mg PO HS [facility]Y PRN Reason: Protocol Stop: 12/02/17 20:59 Last Admin: 10/04/17 21:19 Dose: 7.5 mg Miscellaneous (Vte Chemical Prophylaxis Screen/ Admission) 1 ea [facility] PRN PRN PRN Reason: PROTOCOL Stop: 12/02/17 17:00 Pantoprazole Sodium (Protonix) 40 mg IVP QDAC [facility] Stop: 12/02/17 13:14 Last Admin: 10/05/17 06:49 Dose: 40 mg General: Alert HEENT: Atraumatic Cardiovascular: Regular rate Lungs: Clear to auscultation Abdomen: Soft Assessment/Plan - Assessment Assessment: 72 YO FEMALE WITH MALNUTRITION REFUSING EGD AND WORK UP NOT GOOD HISTORIAN 1.CONT SUPP CARE 2.CONSIDER EGD IF CONSENT IS OBTAINABLE; MAY NEED PEG
--- NOTE | 2017-10-05 09:08 | General Progress Note ---
Subjective - Review of Systems Events since last encounter: no distress no change Objective - Results Result Diagrams: 10/04/17 06:00 10/05/17 05:44 Recent Labs: Laboratory Last Values WBC 5.8 Th/cmm (4.8-10.8) 10/04/17 06:00 RBC 4.08 Mil/cmm (3.80-5.20) 10/04/17 06:00 Hgb 13.3 gm/dL (12-16) 10/04/17 06:00 Hct 39.4 % (41.0-60) L D 10/04/17 06:00 MCV 96.4 fl (81-100) 10/04/17 06:00 MCH 32.5 pg (27.0-31.0) H 10/04/17 06:00 MCHC Differential 33.7 pg (28.0-36.0) 10/04/17 06:00 RDW 12.5 % (11.5-20.0) 10/04/17 06:00 Plt Count 360 Th/cmm (150-400) 10/04/17 06:00 MPV 7.2 fl 10/04/17 06:00 Neutrophils % 84.8 % (40.0-80.0) H 10/04/17 06:00 Band Neutrophils % 10 % (0-10) 10/02/17 17:58 Lymphocytes % 7.0 % (20.0-50.0) L 10/04/17 06:00 Monocytes % 7.3 % (2.0-10.0) 10/04/17 06:00 Eosinophils % 0.3 % (0.0-5.0) 10/04/17 06:00 Basophils % 0.6 % (0.0-2.0) 10/04/17 06:00 Neutrophils (Manual) 79 % (40-80) 10/02/17 17:58 Lymphocytes 5 % (20-50) L 10/02/17 17:58 Monocytes 5 % (2-10) 10/02/17 17:58 Eosinophils 1 % (0-5) 10/02/17 17:58 Basophils 0 % (0-3) 10/02/17 17:58 Platelet Estimate ADEQUATE (NORMAL) 10/02/17 17:58 Platelet Morphology NORMAL (NORMAL) 10/02/17 17:58 RBC Morph Micro Appear NORMAL (NORMAL) 10/02/17 17:58 PT 11.6 SECONDS (9.5-11.5) H 10/04/17 06:00 INR 1.11 (0.5-1.4) 10/04/17 06:00 Sodium 136 mEq/L (136-145) 10/05/17 05:44 Potassium 3.6 mEq/L (3.5-5.1) 10/05/17 05:44 Chloride 106 mEq/L (98-107) 10/05/17 05:44 Carbon Dioxide 21.4 mEq/L (21.0-31.0) 10/05/17 05:44 Anion Gap 12.2 (7.0-16.0) 10/05/17 05:44 BUN 9 mg/dL (7-25) 10/05/17 05:44 Creatinine 0.4 mg/dL (0.6-1.2) L 10/05/17 05:44 Est GFR ( Amer) TNP 10/05/17 05:44 Est GFR (Non-Af Amer) TNP 10/05/17 05:44 BUN/Creatinine Ratio 22.5 10/05/17 05:44 Glucose 128 mg/dL (70-105) H 10/05/17 05:44 Calcium 8.6 mg/dL (8.6-10.3) 10/05/17 05:44 Magnesium 2.4 mg/dL (1.9-2.7) 10/02/17 17:58 Total Bilirubin 0.8 mg/dL (0.3-1.0) 10/05/17 05:44 AST 16 U/L (13-39) 10/05/17 05:44 ALT 12 U/L (7-52) 10/05/17 05:44 Alkaline Phosphatase 65 U/L (34-104) 10/05/17 05:44 Total Protein 5.6 gm/dL (6.0-8.3) L 10/05/17 05:44 Albumin 3.4 gm/dL (3.7-5.3) L 10/05/17 05:44 Globulin 2.2 gm/dL 10/05/17 05:44 Albumin/Globulin Ratio 1.6 (1.0-1.8) 10/05/17 05:44 Triglycerides 113 mg/dL (<150) 10/03/17 06:10 Cholesterol 159 mg/dL (<200) 10/03/17 06:10 LDL Cholesterol Direct 104 mg/dL (75-193) 10/03/17 06:10 HDL Cholesterol 43 mg/dL (23-92) 10/03/17 06:10 TSH 2.82 uIU/ml (0.34-5.60) 10/03/17 06:10 Urine Source RANDOM 10/02/17 15:54 Urine Color YELLOW 10/02/17 15:54 Urine Clarity CLEAR (CLEAR) 10/02/17 15:54 Urine pH 7.0 (4.6 - 8.0) 10/02/17 15:54 Ur Specific [place] 1.010 (1.005-1.030) 10/02/17 15:54 Urine Protein NEGATIVE mg/dL (NEGATIVE) 10/02/17 15:54 Urine Glucose (UA) NEGATIVE mg/dL (NEGATIVE) 10/02/17 15:54 Urine Ketones TRACE mg/dL (NEGATIVE) 10/02/17 15:54 Urine Blood NEGATIVE (NEGATIVE) 10/02/17 15:54 Urine Nitrate NEGATIVE (NEGATIVE) 10/02/17 15:54 Urine Bilirubin NEGATIVE (NEGATIVE) 10/02/17 15:54 Urine Urobilinogen 2.0 E.U./dL (0.2 - 1.0) 10/02/17 15:54 Ur Leukocyte Esterase NEGATIVE (NEGATIVE) 10/02/17 15:54 Urine RBC NONE SEEN /hpf (0-5) 10/02/17 15:54 Urine WBC NONE SEEN /hpf (0-5) 10/02/17 15:54 Ur Epithelial Cells NONE SEEN /lpf (FEW) 10/02/17 15:54 Urine Bacteria NONE SEEN /hpf (NONE SEEN) 10/02/17 15:54 - Physical Exam Vitals and I&O: Vital Signs Temp 98.2 F 10/05/17 04:00 Pulse 111 10/05/17 04:00 Resp 20 10/05/17 04:00 BP 118/65 10/05/17 04:00 Pulse Ox 97 10/05/17 04:00 Intake & Output 10/04/17 10/05/17 10/05/17 18:59 06:59 18:59 Intake Total 350 10 Balance 350 10 Weight (lbs) 27.669 kg 27.669 kg Intake: Oral 350 10 Other: # Voids 4 3 # Bowel Movements 3 0 Stool Characteristics Soft Soft Active Medications: Current Medications Escitalopram Oxalate (Lexapro) 5 mg PO DAILY SAMY PRN Reason: Protocol Stop: 12/03/17 16:59 Haloperidol Lactate (Haldol Concentrate 10mg/5ml Susp) 0.5 mg PO BID SAMY PRN Reason: Protocol Stop: 12/03/17 16:59 Heparin Sodium (Porcine) (Heparin) 5,000 units SUBQ Q12H SAMY Stop: 12/02/17 20:59 Last Admin: 10/04/17 21:19 Dose: 5,000 units Dextrose/Sodium Chloride (D5-0.45ns) 1,000 mls @ 75 mls/hr IV .[id number] SAMY Stop: 12/01/17 22:59 Last Admin: 10/05/17 03:18 Dose: 75 mls/hr Lisinopril (Zestril) 5 mg PO DAILY SAMY Stop: 12/04/17 08:59 Lorazepam (Ativan) 1 mg PO Q6HR PRN; Protocol PRN Reason: Anxiety Stop: 12/03/17 18:57 Lorazepam (Ativan) 0.5 mg PO DAILY SAMY PRN Reason: Protocol Stop: 12/04/17 08:59 Lorazepam (Ativan) 1 mg IVP Q6HR PRN; Protocol PRN Reason: Agitation Stop: 12/04/17 00:12 Last Admin: 10/05/17 00:25 Dose: 1 mg Megestrol Acetate (Megace) 400 mg PO BID SAMY PRN Reason: Protocol Stop: 12/04/17 08:59 Mirtazapine (Remeron) 7.5 mg PO HS SAMY PRN Reason: Protocol Stop: 12/02/17 20:59 Last Admin: 10/04/17 21:19 Dose: 7.5 mg Miscellaneous (Vte Chemical Prophylaxis Screen/ Admission) 1 ea [facility] PRN PRN PRN Reason: PROTOCOL Stop: 12/02/17 17:00 Pantoprazole Sodium (Protonix) 40 mg IVP QDAC SAMY Stop: 12/02/17 13:14 Last Admin: 10/05/17 06:49 Dose: 40 mg General: Alert HEENT: Atraumatic Cardiovascular: Regular rate Lungs: Clear to auscultation Abdomen: Soft Nutritional Asmnt/Malnutr-PDOC - Dietary Evaluation Malnutrition Findings (Please click <Entered> for more info): Nutritional Asmnt/Malnutrition Start: 10/03/17 16: 43 Text: Status: Complete Freq: Document 10/03/17 16:44 [email or web address] (Rec: 10/03/17 17:10 [email or web address] Nutritional Asmnt/Malnutrition Patient General Information Nutritional Screening High Risk Consult Diagnosis malnutrition, hypotension, weight loss Pertinent Medical Hx/Surgical Hx HTN, dyslipidemia, depression, anxiety, hyperlipidemia, dementia, left breast mass Subjective Information Consult received for malnutrition. Pt seen lying in bed, awake and alert. Pt reported no appetite at all, has difficulty of chewing regular food and swallowing any food or liquid. Family at bed side, reported pt was trying to pull out IV. Explained to pt the importance of keeping hydration. Spoke with RN, pt was paranoid, refuse any food or fluid; pt will be NPO for CT tommorrow. Per H&P, pt had wt loss of 12# in 3 month. Current Diet Order/ Nutrition Support soft bland Pertinent Medications D5-0.45ns, remeron, protonix Pertinent Labs 2/2 Na 127, K 3.1, Cl 108, BUN 8, Cr 0.3, Glucose 101, Ca 8. 0, ALb 3.1 2/1 mg 2.4 Nutritional Hx/Data Height 1.57 m Height (Calculated Centimeters) 157.5 Current Weight (lbs) 29.484 kg Weight (Calculated Kilograms) 29.5 Weight (Calculated Grams) 47837.5 [place] Body Weight 110 % [place] Body Weight 59 Body Mass Index (BMI) 11.9 Weight Status Underweight GI Symptoms Last BM no record Difficult in: Chewing Swallowing Skin Integrity/Comment: reddeded to right and left foot, coccyx Current %PO Negligible < 25% Estimated Nutritional Goals Calories/Kcals/Kg 25-30 based on IBW 50kg Kcals Calculated 2546-8547 Protein g/k.2-1.4 Protein Calculated 60-70 Fluid: ml 1250-1500ml (1ml/kcal) Nutritional Problem 2. Problem Problem inadequate food intake Etiology no appetitie and difficulty of chewing and swallowing Signs/Symptoms: pt refusing any food or liquid 1. Problem Problem underweight Etiology poor PO intake, difficulty of chewing and swallowing Signs/Symptoms: BMI 11.9 Malnutrition Alert Body Fat Depletion (Severe) Mod to Severe Depletion Muscle Mass (Severe) Mod to Severe Depletion Is there a minimum of two criteria Yes selected? Query Text:Check all the applicable criteria. A minimum of two criteria are recommended for diagnosis of either severe or non-severe malnutrition. Intervention/Recommendation Comments 1. Recommend swallow eval considering chewing and swallowing difficulty. RN made aware. If pt not able to take oral food, will consider alternative nutrition route. 2. Monitor PO intake, wt, labs and skin integrity 3. F/U as high risk in 2-3 days, 10/05-2/ Expected Outcomes/Goals Expected Outcomes/Goals 1. PO intake to meet at least 75% of nutritional needs. 2. Wt stability, skin to remain intact, labs to approach WNL.
[2017-10-05] MEDS ORDERED: Fleet Enema 135 mL RC PRN (18:01)
--- NOTE | 2017-10-05 23:18 | Progress Notes ---
DATE: 10/05/2017 SUBJECTIVE: Staff was spoken to. The patient is irritable. Affect is constricted. Coping skills are noted to be poor. The patient has been refusing to comply with the treatment and is stating that she knows what she is saying and she does not need to be on medication. The patient has been not making much sense. ASSESSMENT: The patient is still depressed and paranoid. PLAN: To continue the patient with the current medications. I encouraged the patient to verbalize the concerns rather than to act out. JOB# [id number]
[2017-10-06] MEDS: D5-0.45NS 1,000 ML IV SCH (06:47)
[2017-10-06] MEDS: Lactulose 10 Gm/15 mL 30mL UDC PO SCH ×4 (08:31→19:03)
[2017-10-06] MEDS: Haldol Oral Sol.(concentrate) 10 mg/5 mL Udc PO SCH ×3 (09:00→19:02)
[2017-10-06] MEDS: Escitalopram Oxalate 5 mg Tab PO SCH ×2 (09:00→19:03)
--- NOTE | 2017-10-06 09:38 | General Progress Note ---
Subjective - Review of Systems Events since last encounter: in no distress Objective - Results Result Diagrams: 10/04/17 06:00 10/05/17 05:44 Recent Labs: Laboratory Last Values WBC 5.8 Th/cmm (4.8-10.8) 10/04/17 06:00 RBC 4.08 Mil/cmm (3.80-5.20) 10/04/17 06:00 Hgb 13.3 gm/dL (12-16) 10/04/17 06:00 Hct 39.4 % (41.0-60) L D 10/04/17 06:00 MCV 96.4 fl (81-100) 10/04/17 06:00 MCH 32.5 pg (27.0-31.0) H 10/04/17 06:00 MCHC Differential 33.7 pg (28.0-36.0) 10/04/17 06:00 RDW 12.5 % (11.5-20.0) 10/04/17 06:00 Plt Count 360 Th/cmm (150-400) 10/04/17 06:00 MPV 7.2 fl 10/04/17 06:00 Neutrophils % 84.8 % (40.0-80.0) H 10/04/17 06:00 Band Neutrophils % 10 % (0-10) 10/02/17 17:58 Lymphocytes % 7.0 % (20.0-50.0) L 10/04/17 06:00 Monocytes % 7.3 % (2.0-10.0) 10/04/17 06:00 Eosinophils % 0.3 % (0.0-5.0) 10/04/17 06:00 Basophils % 0.6 % (0.0-2.0) 10/04/17 06:00 Neutrophils (Manual) 79 % (40-80) 10/02/17 17:58 Lymphocytes 5 % (20-50) L 10/02/17 17:58 Monocytes 5 % (2-10) 10/02/17 17:58 Eosinophils 1 % (0-5) 10/02/17 17:58 Basophils 0 % (0-3) 10/02/17 17:58 Platelet Estimate ADEQUATE (NORMAL) 10/02/17 17:58 Platelet Morphology NORMAL (NORMAL) 10/02/17 17:58 RBC Morph Micro Appear NORMAL (NORMAL) 10/02/17 17:58 PT 11.6 SECONDS (9.5-11.5) H 10/04/17 06:00 INR 1.11 (0.5-1.4) 10/04/17 06:00 Sodium 136 mEq/L (136-145) 10/05/17 05:44 Potassium 3.6 mEq/L (3.5-5.1) 10/05/17 05:44 Chloride 106 mEq/L (98-107) 10/05/17 05:44 Carbon Dioxide 21.4 mEq/L (21.0-31.0) 10/05/17 05:44 Anion Gap 12.2 (7.0-16.0) 10/05/17 05:44 BUN 9 mg/dL (7-25) 10/05/17 05:44 Creatinine 0.4 mg/dL (0.6-1.2) L 10/05/17 05:44 Est GFR ( Amer) TNP 10/05/17 05:44 Est GFR (Non-Af Amer) TNP 10/05/17 05:44 BUN/Creatinine Ratio 22.5 10/05/17 05:44 Glucose 128 mg/dL (70-105) H 10/05/17 05:44 Calcium 8.6 mg/dL (8.6-10.3) 10/05/17 05:44 Magnesium 2.4 mg/dL (1.9-2.7) 10/02/17 17:58 Total Bilirubin 0.8 mg/dL (0.3-1.0) 10/05/17 05:44 AST 16 U/L (13-39) 10/05/17 05:44 ALT 12 U/L (7-52) 10/05/17 05:44 Alkaline Phosphatase 65 U/L (34-104) 10/05/17 05:44 Total Protein 5.6 gm/dL (6.0-8.3) L 10/05/17 05:44 Albumin 3.4 gm/dL (3.7-5.3) L 10/05/17 05:44 Globulin 2.2 gm/dL 10/05/17 05:44 Albumin/Globulin Ratio 1.6 (1.0-1.8) 10/05/17 05:44 Triglycerides 113 mg/dL (<150) 10/03/17 06:10 Cholesterol 159 mg/dL (<200) 10/03/17 06:10 LDL Cholesterol Direct 104 mg/dL (75-193) 10/03/17 06:10 HDL Cholesterol 43 mg/dL (23-92) 10/03/17 06:10 CA 27-29 Serial Monitr 7.7 U/mL (0.0-38.6) 10/04/17 06:00 TSH 2.82 uIU/ml (0.34-5.60) 10/03/17 06:10 Urine Source RANDOM 10/02/17 15:54 Urine Color YELLOW 10/02/17 15:54 Urine Clarity CLEAR (CLEAR) 10/02/17 15:54 Urine pH 7.0 (4.6 - 8.0) 10/02/17 15:54 Ur Specific [place] 1.010 (1.005-1.030) 10/02/17 15:54 Urine Protein NEGATIVE mg/dL (NEGATIVE) 10/02/17 15:54 Urine Glucose (UA) NEGATIVE mg/dL (NEGATIVE) 10/02/17 15:54 Urine Ketones TRACE mg/dL (NEGATIVE) 10/02/17 15:54 Urine Blood NEGATIVE (NEGATIVE) 10/02/17 15:54 Urine Nitrate NEGATIVE (NEGATIVE) 10/02/17 15:54 Urine Bilirubin NEGATIVE (NEGATIVE) 10/02/17 15:54 Urine Urobilinogen 2.0 E.U./dL (0.2 - 1.0) 10/02/17 15:54 Ur Leukocyte Esterase NEGATIVE (NEGATIVE) 10/02/17 15:54 Urine RBC NONE SEEN /hpf (0-5) 10/02/17 15:54 Urine WBC NONE SEEN /hpf (0-5) 10/02/17 15:54 Ur Epithelial Cells NONE SEEN /lpf (FEW) 10/02/17 15:54 Urine Bacteria NONE SEEN /hpf (NONE SEEN) 10/02/17 15:54 - Physical Exam Vitals and I&O: Vital Signs Temp 97.8 F 10/06/17 04:00 Pulse 64 10/06/17 08:31 Resp 18 10/06/17 04:00 BP 104/44 10/06/17 08:31 Pulse Ox 95 10/06/17 04:00 Intake & Output 10/05/17 10/06/17 10/06/17 18:59 06:59 18:59 Intake Total 1000 1010 Output Total 0 Balance 1000 1010 Weight (lbs) 27.669 kg Intake: Intake, IV Amount 1000 1000 D5-0.45NS 1,000 ml @ 75 1000 1000 mls/hr IV .[id number] [facility] Rx #:[id number] Oral 10 Output: Urine 0 Stool 0 Other: # Voids 2 # Bowel Movements 2 Stool Characteristics Soft Active Medications: Current Medications Escitalopram Oxalate (Lexapro) 5 mg PO DAILY SAMY PRN Reason: Protocol Stop: 12/03/17 16:59 Haloperidol Lactate (Haldol Concentrate 10mg/5ml Susp) 0.5 mg PO BID SAMY PRN Reason: Protocol Stop: 12/03/17 16:59 Heparin Sodium (Porcine) (Heparin) 5,000 units SUBQ Q12H [facility] Stop: 12/02/17 20:59 Last Admin: 10/06/17 08:30 Dose: Not Given Dextrose/Sodium Chloride (D5-0.45ns) 1,000 mls @ 75 mls/hr IV .[id number] [facility] Stop: 12/01/17 22:59 Last Admin: 10/06/17 06:47 Dose: 75 mls/hr Lactulose (Cephulac) 20 gm PO BID [facility] Stop: 12/05/17 08:59 Last Admin: 10/06/17 08:31 Dose: Not Given Lisinopril (Zestril) 5 mg PO DAILY [facility] Stop: 12/04/17 08:59 Last Admin: 10/06/17 08:31 Dose: Not Given Lorazepam (Ativan) 1 mg PO Q6HR PRN; Protocol PRN Reason: Anxiety Stop: 12/03/17 18:57 Lorazepam (Ativan) 0.5 mg PO DAILY [facility] PRN Reason: Protocol Stop: 12/04/17 08:59 Last Admin: 10/06/17 08:37 Dose: Not Given Lorazepam (Ativan) 1 mg IVP Q6HR PRN; Protocol PRN Reason: Agitation Stop: 12/04/17 00:12 Last Admin: 10/05/17 00:25 Dose: 1 mg Megestrol Acetate (Megace) 400 mg PO BID [facility] PRN Reason: Protocol Stop: 12/04/17 08:59 Last Admin: 10/06/17 08:37 Dose: Not Given Mirtazapine (Remeron) 7.5 mg PO HS SAMY PRN Reason: Protocol Stop: 12/02/17 20:59 Last Admin: 10/05/17 22:09 Dose: 7.5 mg Miscellaneous (Vte Chemical Prophylaxis Screen/ Admission) 1 ea [facility] PRN PRN PRN Reason: PROTOCOL Stop: 12/02/17 17:00 Pantoprazole Sodium (Protonix) 40 mg IVP QDAC SAMY Stop: 12/02/17 13:14 Last Admin: 10/06/17 06:47 Dose: 40 mg Sodium Phosphate (Fleet Enema) 135 ml RC PRN PRN PRN Reason: Constipation Stop: 12/04/17 18:00 Last Admin: 10/05/17 22:21 Dose: 135 ml General: Alert HEENT: Atraumatic Cardiovascular: Regular rate Lungs: Clear to auscultation Abdomen: Soft Nutritional Asmnt/Malnutr-PDOC - Dietary Evaluation Malnutrition Findings (Please click <Entered> for more info): Nutritional Asmnt/Malnutrition Start: 10/03/17 16: 43 Text: Status: Complete Freq: Document 10/03/17 16:44 LCHENG (Rec: 10/03/17 17:10 LCHENG [email or web address]) Nutritional Asmnt/Malnutrition Patient General Information Nutritional Screening High Risk Consult Diagnosis malnutrition, hypotension, weight loss Pertinent Medical Hx/Surgical Hx HTN, dyslipidemia, depression, anxiety, hyperlipidemia, dementia, left breast mass Subjective Information Consult received for malnutrition. Pt seen lying in bed, awake and alert. Pt reported no appetite at all, has difficulty of chewing regular food and swallowing any food or liquid. Family at bed side, reported pt was trying to pull out IV. Explained to pt the importance of keeping hydration. Spoke with RN, pt was paranoid, refuse any food or fluid; pt will be NPO for CT tommorrow. Per H&P, pt had wt loss of 12# in 3 month. Current Diet Order/ Nutrition Support soft bland Pertinent Medications D5-0.45ns, remeron, protonix Pertinent Labs 2/2 Na 127, K 3.1, Cl 108, BUN 8, Cr 0.3, Glucose 101, Ca 8. 0, ALb 3.1 2/1 mg 2.4 Nutritional Hx/Data Height 1.57 m Height (Calculated Centimeters) 157.5 Current Weight (lbs) 29.484 kg Weight (Calculated Kilograms) 29.5 Weight (Calculated Grams) 08970.5 [place] Body Weight 110 % [place] Body Weight 59 Body Mass Index (BMI) 11.9 Weight Status Underweight GI Symptoms Last BM no record Difficult in: Chewing Swallowing Skin Integrity/Comment: reddeded to right and left foot, coccyx Current %PO Negligible < 25% Estimated Nutritional Goals Calories/Kcals/Kg 25-30 based on IBW 50kg Kcals Calculated 5863-3897 Protein g/k.2-1.4 Protein Calculated 60-70 Fluid: ml 1250-1500ml (1ml/kcal) Nutritional Problem 2. Problem Problem inadequate food intake Etiology no appetitie and difficulty of chewing and swallowing Signs/Symptoms: pt refusing any food or liquid 1. Problem Problem underweight Etiology poor PO intake, difficulty of chewing and swallowing Signs/Symptoms: BMI 11.9 Malnutrition Alert Body Fat Depletion (Severe) Mod to Severe Depletion Muscle Mass (Severe) Mod to Severe Depletion Is there a minimum of two criteria Yes selected? Query Text:Check all the applicable criteria. A minimum of two criteria are recommended for diagnosis of either severe or non-severe malnutrition. Intervention/Recommendation Comments 1. Recommend swallow eval considering chewing and swallowing difficulty. RN made aware. If pt not able to take oral food, will consider alternative nutrition route. 2. Monitor PO intake, wt, labs and skin integrity 3. F/U as high risk in 2-3 days, 2/4-2/5 Expected Outcomes/Goals Expected Outcomes/Goals 1. PO intake to meet at least 75% of nutritional needs. 2. Wt stability, skin to remain intact, labs to approach WNL.
[2017-10-06 09:50] LABS: BASOPHILE ABSOLUTE 0.1 Th/cumm (0-0.2); HEMATOCRIT 37.1 % (41.0-60); HEMOGLOBIN 12.6 gm/dL (12-16); LYMPHOCYTE ABSOLUTE 0.5 Th/cmm (1.5-3.0); MEAN CELL VOLUME 97.4 fl (81-100); MEAN CORPUSCULAR HEMOGLOBIN 33.1 pg (27.0-31.0); MEAN CORPUSCULAR HGB CONC 33.9 pg (28.0-36.0); MEAN PLATELET VOLUME 6.7 fl; MONOCYTE ABSOLUTE 0.3 Th/cmm (0.3-1.0); NEUTROPHILE ABSOLUTE 10.8 Th/cmm (1.8-8.0); RED BLOOD COUNT 3.81 Mil/cmm (3.80-5.20); RED CELL DISTRIBUTION WIDTH 13.1 % (11.5-20.0)
[2017-10-06 09:58] LABS: PLATELET COUNT 285 Th/cmm (150-400); WHITE BLOOD COUNT 11.7 Th/cmm (4.8-10.8)
[2017-10-06 10:09] LABS: BUN - UREA NITROGEN 5 mg/dL (7-25); CALCIUM SERUM 8.2 mg/dL (8.6-10.3); CARBON DIOXIDE 23.6 mEq/L (21.0-31.0); CHLORIDE 106 mEq/L (98-107); CREATININE - SERUM 0.4 mg/dL (0.6-1.2); GLUCOSE 116 mg/dL (70-105); SODIUM SERUM 135 mEq/L (136-145)
[2017-10-06 10:13] LABS: POTASSIUM SERUM 2.6 mEq/L (3.5-5.1)
[2017-10-06] MEDS ORDERED: Potassium Chloride 60 MEQ, Lidocaine 1% 20mL Vial 25 MG in Sodium Chloride 0.9% 500 ML IV ONE (11:00)
--- NOTE | 2017-10-06 11:33 | General Progress Note ---
Subjective - Review of Systems Service Date: 10/06/17 Objective - Results Result Diagrams: 10/06/17 09:45 10/06/17 09:45 Recent Labs: Laboratory Last Values WBC 11.7 Th/cmm (4.8-10.8) H D 10/06/17 09:45 RBC 3.81 Mil/cmm (3.80-5.20) 10/06/17 09:45 Hgb 12.6 gm/dL (12-16) 10/06/17 09:45 Hct 37.1 % (41.0-60) L 10/06/17 09:45 MCV 97.4 fl (81-100) 10/06/17 09:45 MCH 33.1 pg (27.0-31.0) H 10/06/17 09:45 MCHC Differential 33.9 pg (28.0-36.0) 10/06/17 09:45 RDW 13.1 % (11.5-20.0) 10/06/17 09:45 Plt Count 285 Th/cmm (150-400) D 10/06/17 09:45 MPV 6.7 fl 10/06/17 09:45 Neutrophils % 84.8 % (40.0-80.0) H 10/04/17 06:00 Band Neutrophils % 10 % (0-10) 10/02/17 17:58 Lymphocytes % 7.0 % (20.0-50.0) L 10/04/17 06:00 Monocytes % 7.3 % (2.0-10.0) 10/04/17 06:00 Eosinophils % 0.3 % (0.0-5.0) 10/04/17 06:00 Basophils % 0.6 % (0.0-2.0) 10/04/17 06:00 Neutrophils (Manual) 79 % (40-80) 10/02/17 17:58 Lymphocytes 5 % (20-50) L 10/02/17 17:58 Monocytes 5 % (2-10) 10/02/17 17:58 Eosinophils 1 % (0-5) 10/02/17 17:58 Basophils 0 % (0-3) 10/02/17 17:58 Platelet Estimate ADEQUATE (NORMAL) 10/02/17 17:58 Platelet Morphology NORMAL (NORMAL) 10/02/17 17:58 RBC Morph Micro Appear NORMAL (NORMAL) 10/02/17 17:58 PT 11.6 SECONDS (9.5-11.5) H 10/04/17 06:00 INR 1.11 (0.5-1.4) 10/04/17 06:00 Sodium 135 mEq/L (136-145) L 10/06/17 09:45 Potassium 2.6 mEq/L (3.5-5.1) L* D 10/06/17 09:45 Chloride 106 mEq/L (98-107) 10/06/17 09:45 Carbon Dioxide 23.6 mEq/L (21.0-31.0) 10/06/17 09:45 Anion Gap 8.0 (7.0-16.0) 10/06/17 09:45 BUN 5 mg/dL (7-25) L 10/06/17 09:45 Creatinine 0.4 mg/dL (0.6-1.2) L 10/06/17 09:45 Est GFR ( Amer) TNP 10/06/17 09:45 Est GFR (Non-Af Amer) TNP 10/06/17 09:45 BUN/Creatinine Ratio 12.5 10/06/17 09:45 Glucose 116 mg/dL (70-105) H 10/06/17 09:45 Calcium 8.2 mg/dL (8.6-10.3) L 10/06/17 09:45 Magnesium 1.8 mg/dL (1.9-2.7) L 10/06/17 09:45 Total Bilirubin 0.8 mg/dL (0.3-1.0) 10/05/17 05:44 AST 16 U/L (13-39) 10/05/17 05:44 ALT 12 U/L (7-52) 10/05/17 05:44 Alkaline Phosphatase 65 U/L (34-104) 10/05/17 05:44 Total Protein 5.6 gm/dL (6.0-8.3) L 10/05/17 05:44 Albumin 3.4 gm/dL (3.7-5.3) L 10/05/17 05:44 Globulin 2.2 gm/dL 10/05/17 05:44 Albumin/Globulin Ratio 1.6 (1.0-1.8) 10/05/17 05:44 Triglycerides 113 mg/dL (<150) 10/03/17 06:10 Cholesterol 159 mg/dL (<200) 10/03/17 06:10 LDL Cholesterol Direct 104 mg/dL (75-193) 10/03/17 06:10 HDL Cholesterol 43 mg/dL (23-92) 10/03/17 06:10 CA 27-29 Serial Monitr 7.7 U/mL (0.0-38.6) 10/04/17 06:00 TSH 2.82 uIU/ml (0.34-5.60) 10/03/17 06:10 Urine Source RANDOM 10/02/17 15:54 Urine Color YELLOW 10/02/17 15:54 Urine Clarity CLEAR (CLEAR) 10/02/17 15:54 Urine pH 7.0 (4.6 - 8.0) 10/02/17 15:54 Ur Specific Strong 1.010 (1.005-1.030) 10/02/17 15:54 Urine Protein NEGATIVE mg/dL (NEGATIVE) 10/02/17 15:54 Urine Glucose (UA) NEGATIVE mg/dL (NEGATIVE) 10/02/17 15:54 Urine Ketones TRACE mg/dL (NEGATIVE) 10/02/17 15:54 Urine Blood NEGATIVE (NEGATIVE) 10/02/17 15:54 Urine Nitrate NEGATIVE (NEGATIVE) 10/02/17 15:54 Urine Bilirubin NEGATIVE (NEGATIVE) 10/02/17 15:54 Urine Urobilinogen 2.0 E.U./dL (0.2 - 1.0) 10/02/17 15:54 Ur Leukocyte Esterase NEGATIVE (NEGATIVE) 10/02/17 15:54 Urine RBC NONE SEEN /hpf (0-5) 10/02/17 15:54 Urine WBC NONE SEEN /hpf (0-5) 10/02/17 15:54 Ur Epithelial Cells NONE SEEN /lpf (FEW) 10/02/17 15:54 Urine Bacteria NONE SEEN /hpf (NONE SEEN) 10/02/17 15:54 - Physical Exam Vitals and I&O: Vital Signs Temp 97.4 F 10/06/17 08:00 Pulse 64 10/06/17 08:31 Resp 18 10/06/17 08:00 BP 104/44 10/06/17 08:31 Pulse Ox 96 10/06/17 08:00 Intake & Output 10/05/17 10/06/17 10/06/17 18:59 06:59 18:59 Intake Total 1000 1010 Output Total 0 Balance 1000 1010 Weight (lbs) 27.669 kg Intake: Intake, IV Amount 1000 1000 D5-0.45NS 1,000 ml @ 75 1000 1000 mls/hr IV .[id number] [facility] Rx #:[id number] Oral 10 Output: Urine 0 Stool 0 Other: # Voids 2 # Bowel Movements 2 Stool Characteristics Soft Active Medications: Current Medications Escitalopram Oxalate (Lexapro) 5 mg PO DAILY SAMY PRN Reason: Protocol Stop: 12/03/17 16:59 Haloperidol Lactate (Haldol Concentrate 10mg/5ml Susp) 0.5 mg PO BID SAMY PRN Reason: Protocol Stop: 12/03/17 16:59 Heparin Sodium (Porcine) (Heparin) 5,000 units SUBQ Q12H SAMY Stop: 12/02/17 20:59 Last Admin: 10/06/17 08:30 Dose: Not Given Dextrose/Sodium Chloride (D5-0.45ns) 1,000 mls @ 75 mls/hr IV .[id number] SAMY Stop: 12/01/17 22:59 Last Admin: 10/06/17 06:47 Dose: 75 mls/hr Potassium Chloride 60 meq/Lidocaine HCl 25 mg/ Sodium Chloride 500 mls @ 83.333 mls/hr IV X1 ONE Stop: 10/06/17 16:59 Last Admin: 10/06/17 11:16 Dose: 83.333 mls/hr Lactulose (Cephulac) 20 gm PO BID SAMY Stop: 12/05/17 08:59 Last Admin: 10/06/17 08:31 Dose: Not Given Lisinopril (Zestril) 5 mg PO DAILY SAMY Stop: 12/04/17 08:59 Last Admin: 10/06/17 08:31 Dose: Not Given Lorazepam (Ativan) 1 mg PO Q6HR PRN; Protocol PRN Reason: Anxiety Stop: 12/03/17 18:57 Lorazepam (Ativan) 0.5 mg PO DAILY SAMY PRN Reason: Protocol Stop: 12/04/17 08:59 Last Admin: 10/06/17 08:37 Dose: Not Given Lorazepam (Ativan) 1 mg IVP Q6HR PRN; Protocol PRN Reason: Agitation Stop: 12/04/17 00:12 Last Admin: 10/05/17 00:25 Dose: 1 mg Megestrol Acetate (Megace) 400 mg PO BID SAYM PRN Reason: Protocol Stop: 12/04/17 08:59 Last Admin: 10/06/17 08:37 Dose: Not Given Mirtazapine (Remeron) 7.5 mg PO HS SAMY PRN Reason: Protocol Stop: 12/02/17 20:59 Last Admin: 10/05/17 22:09 Dose: 7.5 mg Miscellaneous (Vte Chemical Prophylaxis Screen/ Admission) 1 ea [facility] PRN PRN PRN Reason: PROTOCOL Stop: 12/02/17 17:00 Pantoprazole Sodium (Protonix) 40 mg IVP QDAC SAMY Stop: 12/02/17 13:14 Last Admin: 10/06/17 06:47 Dose: 40 mg Sodium Phosphate (Fleet Enema) 135 ml RC PRN PRN PRN Reason: Constipation Stop: 12/04/17 18:00 Last Admin: 10/05/17 22:21 Dose: 135 ml General: Alert HEENT: Atraumatic Cardiovascular: Regular rate Lungs: Clear to auscultation Abdomen: Soft Assessment/Plan - Assessment Assessment: * left breast mass * Hypokalemia supplementation refused CT and EGD CA27 normal level Nutritional Asmnt/Malnutr-PDOC - Dietary Evaluation Malnutrition Findings (Please click <Entered> for more info): Nutritional Asmnt/Malnutrition Start: 10/03/17 16: 43 Text: Status: Complete Freq: Document 10/03/17 16:44 ROYCE (Rec: 10/03/17 17:10 HEN [email or web address]) Nutritional Asmnt/Malnutrition Patient General Information Nutritional Screening High Risk Consult Diagnosis malnutrition, hypotension, weight loss Pertinent Medical Hx/Surgical Hx HTN, dyslipidemia, depression, anxiety, hyperlipidemia, dementia, left breast mass Subjective Information Consult received for malnutrition. Pt seen lying in bed, awake and alert. Pt reported no appetite at all, has difficulty of chewing regular food and swallowing any food or liquid. Family at bed side, reported pt was trying to pull out IV. Explained to pt the importance of keeping hydration. Spoke with RN, pt was paranoid, refuse any food or fluid; pt will be NPO for CT tommorrow. Per H&P, pt had wt loss of 12# in 3 month. Current Diet Order/ Nutrition Support soft bland Pertinent Medications D5-0.45ns, remeron, protonix Pertinent Labs 2/2 Na 127, K 3.1, Cl 108, BUN 8, Cr 0.3, Glucose 101, Ca 8. 0, ALb 3.1 2/1 mg 2.4 Nutritional Hx/Data Height 1.57 m Height (Calculated Centimeters) 157.5 Current Weight (lbs) 29.484 kg Weight (Calculated Kilograms) 29.5 Weight (Calculated Grams) 76846.5 [place] Body Weight 110 % [place] Body Weight 59 Body Mass Index (BMI) 11.9 Weight Status Underweight GI Symptoms Last BM no record Difficult in: Chewing Swallowing Skin Integrity/Comment: reddeded to right and left foot, coccyx Current %PO Negligible < 25% Estimated Nutritional Goals Calories/Kcals/Kg 25-30 based on IBW 50kg Kcals Calculated 2328-7226 Protein g/k.2-1.4 Protein Calculated 60-70 Fluid: ml 1250-1500ml (1ml/kcal) Nutritional Problem 2. Problem Problem inadequate food intake Etiology no appetitie and difficulty of chewing and swallowing Signs/Symptoms: pt refusing any food or liquid 1. Problem Problem underweight Etiology poor PO intake, difficulty of chewing and swallowing Signs/Symptoms: BMI 11.9 Malnutrition Alert Body Fat Depletion (Severe) Mod to Severe Depletion Muscle Mass (Severe) Mod to Severe Depletion Is there a minimum of two criteria Yes selected? Query Text:Check all the applicable criteria. A minimum of two criteria are recommended for diagnosis of either severe or non-severe malnutrition. Intervention/Recommendation Comments 1. Recommend swallow eval considering chewing and swallowing difficulty. RN made aware. If pt not able to take oral food, will consider alternative nutrition route. 2. Monitor PO intake, wt, labs and skin integrity 3. F/U as high risk in 2-3 days, 2/4-2/5 Expected Outcomes/Goals Expected Outcomes/Goals 1. PO intake to meet at least 75% of nutritional needs. 2. Wt stability, skin to remain intact, labs to approach WNL.
[2017-10-07] MEDS ORDERED: Propofol 10 mg/mL 20mL Vial **SURGERY USE ONLY IV ONE (09:00)
[2017-10-07] MEDS: Lactulose 10 Gm/15 mL 30mL UDC PO SCH ×2 (09:00→18:28)
[2017-10-07] MEDS: Escitalopram Oxalate 5 mg Tab PO SCH (09:28)
[2017-10-07] MEDS: Haldol Oral Sol.(concentrate) 10 mg/5 mL Udc PO SCH (09:28)
--- NOTE | 2017-10-07 10:00 | Operative Report ---
DATE OF SURGERY: 10/07/2017 PROCEDURE: Esophagogastroduodenoscopy with biopsy. INDICATION FOR PROCEDURE: Dysphagia. CONSENT: Informed consent was obtained from the patient and her family after planning benefits and risks including infection, bleeding, perforation, . ANESTHESIA USED: Propofol given by anesthesiologist. PREOPERATIVE DIAGNOSIS: Dysphagia. POSTOPERATIVE DIAGNOSES: 1. Dysphagia. 2. Normal examination. DESCRIPTION OF PROCEDURE: The patient was placed on her back. Head was tilted to the side and flexed forward. Upper Olympus endoscope was introduced into the mouth and advanced to the esophagus, which was intubated under direct visualization. Esophageal mucosa was examined on the way down to essentially normal. GE junction was identified at 40 cm. Scope was advanced to the stomach where the gastric mucosa was examined and it showed normal mucosa. Scope was advanced through the pylorus to the duodenum where the bulb and second part were examined and they were both normal. Scope was then withdrawn to the stomach and retroflexed to examine the cardia and fundus, it did not show any other abnormality. Scope was then straightened. Same examination was repeated again without new findings. So, biopsies were taken from the antrum for CLOtest. Scope was then withdrawn while examining the gastric and esophageal mucosa a second time. The patient tolerated the procedure well. There were no immediate postoperative complications. RECOMMENDATIONS: 1. Follow up CLOtest. 2. Treat H. pylori if positive. 3. Continue workup for dysphagia. 4. Diet as tolerated. Thank you Dr. Cee for allowing me to participate in the care of the patient. If you have any further questions, please let me know. [facility]# [id number]
[2017-10-07] MEDS: D5-0.45NS 1,000 ML IV SCH (11:05)
--- NOTE | 2017-10-07 12:28 | Internal Medicine Prog Note ---
Internal Medicine Subjective - Subjective Service Date: 10/07/17 Patient seen and examined:: with staff Patient is:: awake, confused Per staff patient has:: tolerating meds Internal Medicine Objective - Results Result Diagrams: 10/06/17 09:45 10/06/17 09:45 Recent Labs: Laboratory Last Values WBC 11.7 Th/cmm (4.8-10.8) H D 10/06/17 09:45 RBC 3.81 Mil/cmm (3.80-5.20) 10/06/17 09:45 Hgb 12.6 gm/dL (12-16) 10/06/17 09:45 Hct 37.1 % (41.0-60) L 10/06/17 09:45 MCV 97.4 fl (81-100) 10/06/17 09:45 MCH 33.1 pg (27.0-31.0) H 10/06/17 09:45 MCHC Differential 33.9 pg (28.0-36.0) 10/06/17 09:45 RDW 13.1 % (11.5-20.0) 10/06/17 09:45 Plt Count 285 Th/cmm (150-400) D 10/06/17 09:45 MPV 6.7 fl 10/06/17 09:45 Neutrophils % 84.8 % (40.0-80.0) H 10/04/17 06:00 Band Neutrophils % 10 % (0-10) 10/02/17 17:58 Lymphocytes % 7.0 % (20.0-50.0) L 10/04/17 06:00 Monocytes % 7.3 % (2.0-10.0) 10/04/17 06:00 Eosinophils % 0.3 % (0.0-5.0) 10/04/17 06:00 Basophils % 0.6 % (0.0-2.0) 10/04/17 06:00 Neutrophils (Manual) 79 % (40-80) 10/02/17 17:58 Lymphocytes 5 % (20-50) L 10/02/17 17:58 Monocytes 5 % (2-10) 10/02/17 17:58 Eosinophils 1 % (0-5) 10/02/17 17:58 Basophils 0 % (0-3) 02/01/18 17:58 Platelet Estimate ADEQUATE (NORMAL) 10/02/17 17:58 Platelet Morphology NORMAL (NORMAL) 10/02/17 17:58 RBC Morph Micro Appear NORMAL (NORMAL) 10/02/17 17:58 PT 11.6 SECONDS (9.5-11.5) H 10/04/17 06:00 INR 1.11 (0.5-1.4) 10/04/17 06:00 Sodium 135 mEq/L (136-145) L 10/06/17 09:45 Potassium 2.6 mEq/L (3.5-5.1) L* D 10/06/17 09:45 Chloride 106 mEq/L (98-107) 10/06/17 09:45 Carbon Dioxide 23.6 mEq/L (21.0-31.0) 10/06/17 09:45 Anion Gap 8.0 (7.0-16.0) 10/06/17 09:45 BUN 5 mg/dL (7-25) L 10/06/17 09:45 Creatinine 0.4 mg/dL (0.6-1.2) L 10/06/17 09:45 Est GFR ( Amer) TNP 10/06/17 09:45 Est GFR (Non-Af Amer) TNP 10/06/17 09:45 BUN/Creatinine Ratio 12.5 10/06/17 09:45 Glucose 116 mg/dL (70-105) H 10/06/17 09:45 Calcium 8.2 mg/dL (8.6-10.3) L 10/06/17 09:45 Magnesium 1.8 mg/dL (1.9-2.7) L 10/06/17 09:45 Total Bilirubin 0.8 mg/dL (0.3-1.0) 10/05/17 05:44 AST 16 U/L (13-39) 10/05/17 05:44 ALT 12 U/L (7-52) 10/05/17 05:44 Alkaline Phosphatase 65 U/L (34-104) 10/05/17 05:44 Total Protein 5.6 gm/dL (6.0-8.3) L 10/05/17 05:44 Albumin 3.4 gm/dL (3.7-5.3) L 10/05/17 05:44 Globulin 2.2 gm/dL 10/05/17 05:44 Albumin/Globulin Ratio 1.6 (1.0-1.8) 10/05/17 05:44 Triglycerides 113 mg/dL (<150) 10/03/17 06:10 Cholesterol 159 mg/dL (<200) 10/03/17 06:10 LDL Cholesterol Direct 104 mg/dL (75-193) 10/03/17 06:10 HDL Cholesterol 43 mg/dL (23-92) 10/03/17 06:10 CA 27-29 Serial Monitr 7.7 U/mL (0.0-38.6) 10/04/17 06:00 TSH 2.82 uIU/ml (0.34-5.60) 10/03/17 06:10 Urine Source RANDOM 10/02/17 15:54 Urine Color YELLOW 10/02/17 15:54 Urine Clarity CLEAR (CLEAR) 10/02/17 15:54 Urine pH 7.0 (4.6 - 8.0) 10/02/17 15:54 Ur Specific [place] 1.010 (1.005-1.030) 10/02/17 15:54 Urine Protein NEGATIVE mg/dL (NEGATIVE) 10/02/17 15:54 Urine Glucose (UA) NEGATIVE mg/dL (NEGATIVE) 10/02/17 15:54 Urine Ketones TRACE mg/dL (NEGATIVE) 10/02/17 15:54 Urine Blood NEGATIVE (NEGATIVE) 10/02/17 15:54 Urine Nitrate NEGATIVE (NEGATIVE) 10/02/17 15:54 Urine Bilirubin NEGATIVE (NEGATIVE) 10/02/17 15:54 Urine Urobilinogen 2.0 E.U./dL (0.2 - 1.0) 10/02/17 15:54 Ur Leukocyte Esterase NEGATIVE (NEGATIVE) 10/02/17 15:54 Urine RBC NONE SEEN /hpf (0-5) 10/02/17 15:54 Urine WBC NONE SEEN /hpf (0-5) 10/02/17 15:54 Ur Epithelial Cells NONE SEEN /lpf (FEW) 10/02/17 15:54 Urine Bacteria NONE SEEN /hpf (NONE SEEN) 10/02/17 15:54 - Physical Exam Vitals and I&O: Vital Signs Temp 99.2 F 10/06/17 22:14 Pulse 72 10/07/17 11:07 Resp 18 10/07/17 05:11 BP 132/60 10/07/17 11:07 Pulse Ox 93 10/07/17 05:11 Intake & Output 10/06/17 10/07/17 10/07/17 18:59 06:59 18:59 Intake Total 1300 Balance 1300 Weight (lbs) 61 lb Intake: Intake, IV Amount 1000 D5-0.45NS 1,000 ml @ 75 1000 mls/hr IV .[id number] [facility] Rx #:[id number] Oral 300 Other: # Voids 1 # Bowel Movements 1 Active Medications: Current Medications Escitalopram Oxalate (Lexapro) 5 mg PO DAILY SAMY PRN Reason: Protocol Stop: 12/03/17 16:59 Last Admin: 10/07/17 09:28 Dose: Not Given Haloperidol (Haldol) 0.5 mg PO BID SAMY PRN Reason: Protocol Stop: 12/06/17 11:29 Heparin Sodium (Porcine) (Heparin) 5,000 units SUBQ Q12H [facility] Stop: 12/02/17 20:59 Last Admin: 10/07/17 09:28 Dose: Not Given Dextrose/Sodium Chloride (D5-0.45ns) 1,000 mls @ 75 mls/hr IV .[id number] [facility] Stop: 12/01/17 22:59 Last Admin: 10/07/17 11:05 Dose: 75 mls/hr Lactulose (Cephulac) 20 gm PO BID [facility] Stop: 12/05/17 08:59 Last Admin: 10/07/17 09:00 Dose: Not Given Lisinopril (Zestril) 5 mg PO DAILY [facility] Stop: 12/04/17 08:59 Last Admin: 10/07/17 11:07 Dose: Not Given Lorazepam (Ativan) 1 mg PO Q6HR PRN; Protocol PRN Reason: Anxiety Stop: 12/03/17 18:57 Lorazepam (Ativan) 0.5 mg PO DAILY [facility] PRN Reason: Protocol Stop: 12/04/17 08:59 Last Admin: 10/07/17 09:00 Dose: Not Given Lorazepam (Ativan) 1 mg IVP Q6HR PRN; Protocol PRN Reason: Agitation Stop: 12/04/17 00:12 Last Admin: 10/05/17 00:25 Dose: 1 mg Megestrol Acetate (Megace) 400 mg PO BID SAMY PRN Reason: Protocol Stop: 12/04/17 08:59 Last Admin: 10/07/17 09:00 Dose: Not Given Mirtazapine (Remeron) 7.5 mg PO HS SAMY PRN Reason: Protocol Stop: 12/02/17 20:59 Last Admin: 10/06/17 20:27 Dose: 7.5 mg Miscellaneous (Vte Chemical Prophylaxis Screen/ Admission) 1 ea [facility] PRN PRN PRN Reason: PROTOCOL Stop: 12/02/17 17:00 Pantoprazole Sodium (Protonix) 40 mg IVP QDAC SAMY Stop: 12/02/17 13:14 Last Admin: 10/07/17 07:14 Dose: 40 mg Sodium Phosphate (Fleet Enema) 135 ml RC PRN PRN PRN Reason: Constipation Stop: 12/04/17 18:00 Last Admin: 10/05/17 22:21 Dose: 135 ml General: weak, alert HEENT: NC/AT, PERRLA Neck: Supple Lungs: CTAB Cardiovascular: RRR, Normal S1, Normal S2 Abdomen: soft, non-tender Internal Medicine Assmt/Plan - Assessment Assessment: malnutrition anorexia hypotension copd hx left breast mass - Plan Plan: pt eval ivf for hydration supplemental oxygen continue current orders Nutritional Asmnt/Malnutr-PDOC - Dietary Evaluation Malnutrition Findings (Please click <Entered> for more info): Nutritional Asmnt/Malnutrition Start: 10/03/17 16: 43 Text: Status: Complete Freq: Document 10/06/17 18:14 CHANTELLE (Rec: 10/06/17 18:16 CHANTELLE [email or web address]) Nutritional Asmnt/Malnutrition Patient General Information Nutritional Screening High Risk Diagnosis malnut
[2017-10-07 13:54] LABS: ALB/GLOB RATIO 1.3 (1.0-1.8); ALBUMIN 2.7 gm/dL (3.7-5.3); ALKALINE PHOSPHATASE 66 U/L (34-104); BILIRUBIN,TOTAL 0.8 mg/dL (0.3-1.0); BUN - UREA NITROGEN 5 mg/dL (7-25); CALCIUM SERUM 8.1 mg/dL (8.6-10.3); CARBON DIOXIDE 21.7 mEq/L (21.0-31.0); CHLORIDE 108 mEq/L (98-107); CREATININE - SERUM 0.4 mg/dL (0.6-1.2); GLUCOSE 152 mg/dL (70-105); POTASSIUM SERUM 3.7 mEq/L (3.5-5.1); SGOT 14 U/L (13-39); SGPT/ALT 9 U/L (7-52); SODIUM SERUM 136 mEq/L (136-145); TOTAL PROTEIN,SERUM 4.8 gm/dL (6.0-8.3)
[2017-10-08] MEDS: Escitalopram Oxalate 5 mg Tab PO SCH (09:25)
[2017-10-08] MEDS: Lactulose 10 Gm/15 mL 30mL UDC PO SCH ×2 (09:25→16:29)
--- NOTE | 2017-10-08 09:43 | General Progress Note ---
Subjective - Review of Systems Events since last encounter: in no acute distress Objective - Results Result Diagrams: 10/06/17 09:45 10/07/17 12:12 Recent Labs: Laboratory Last Values WBC 11.7 Th/cmm (4.8-10.8) H D 10/06/17 09:45 RBC 3.81 Mil/cmm (3.80-5.20) 10/06/17 09:45 Hgb 12.6 gm/dL (12-16) 10/06/17 09:45 Hct 37.1 % (41.0-60) L 10/06/17 09:45 MCV 97.4 fl (81-100) 10/06/17 09:45 MCH 33.1 pg (27.0-31.0) H 10/06/17 09:45 MCHC Differential 33.9 pg (28.0-36.0) 10/06/17 09:45 RDW 13.1 % (11.5-20.0) 10/06/17 09:45 Plt Count 285 Th/cmm (150-400) D 10/06/17 09:45 MPV 6.7 fl 10/06/17 09:45 Neutrophils % 84.8 % (40.0-80.0) H 10/04/17 06:00 Band Neutrophils % 10 % (0-10) 10/02/17 17:58 Lymphocytes % 7.0 % (20.0-50.0) L 10/04/17 06:00 Monocytes % 7.3 % (2.0-10.0) 10/04/17 06:00 Eosinophils % 0.3 % (0.0-5.0) 10/04/17 06:00 Basophils % 0.6 % (0.0-2.0) 10/04/17 06:00 Neutrophils (Manual) 79 % (40-80) 10/02/17 17:58 Lymphocytes 5 % (20-50) L 10/02/17 17:58 Monocytes 5 % (2-10) 10/02/17 17:58 Eosinophils 1 % (0-5) 10/02/17 17:58 Basophils 0 % (0-3) 10/02/17 17:58 Platelet Estimate ADEQUATE (NORMAL) 10/02/17 17:58 Platelet Morphology NORMAL (NORMAL) 10/02/17 17:58 RBC Morph Micro Appear NORMAL (NORMAL) 10/02/17 17:58 PT 11.6 SECONDS (9.5-11.5) H 10/04/17 06:00 INR 1.11 (0.5-1.4) 10/04/17 06:00 Sodium 136 mEq/L (136-145) 10/07/17 12:12 Potassium 3.7 mEq/L (3.5-5.1) 10/07/17 12:12 Chloride 108 mEq/L (98-107) H 10/07/17 12:12 Carbon Dioxide 21.7 mEq/L (21.0-31.0) 10/07/17 12:12 Anion Gap 10.0 (7.0-16.0) 10/07/17 12:12 BUN 5 mg/dL (7-25) L 10/07/17 12:12 Creatinine 0.4 mg/dL (0.6-1.2) L 10/07/17 12:12 Est GFR ( Amer) TNP 10/07/17 12:12 Est GFR (Non-Af Amer) TNP 10/07/17 12:12 BUN/Creatinine Ratio 12.5 10/07/17 12:12 Glucose 152 mg/dL (70-105) H 10/07/17 12:12 Calcium 8.1 mg/dL (8.6-10.3) L 10/07/17 12:12 Magnesium 1.8 mg/dL (1.9-2.7) L 10/06/17 09:45 Total Bilirubin 0.8 mg/dL (0.3-1.0) 10/07/17 12:12 AST 14 U/L (13-39) 10/07/17 12:12 ALT 9 U/L (7-52) 10/07/17 12:12 Alkaline Phosphatase 66 U/L (34-104) 10/07/17 12:12 Total Protein 4.8 gm/dL (6.0-8.3) L 10/07/17 12:12 Albumin 2.7 gm/dL (3.7-5.3) L 10/07/17 12:12 Globulin 2.1 gm/dL 10/07/17 12:12 Albumin/Globulin Ratio 1.3 (1.0-1.8) 10/07/17 12:12 Triglycerides 113 mg/dL (<150) 10/03/17 06:10 Cholesterol 159 mg/dL (<200) 10/03/17 06:10 LDL Cholesterol Direct 104 mg/dL (75-193) 10/03/17 06:10 HDL Cholesterol 43 mg/dL (23-92) 10/03/17 06:10 Carcinoembryonic Ag 8.6 ng/mL (0.0-4.7) H 10/03/17 06:10 CA 19-9 Antigen 35 U/mL (0-35) 10/02/17 17:58 CA 27-29 Serial Monitr 7.7 U/mL (0.0-38.6) 10/04/17 06:00 CA 125 Antigen 23.0 U/mL (0.0-38.1) 10/02/17 17:58 TSH 2.82 uIU/ml (0.34-5.60) 10/03/17 06:10 Urine Source RANDOM 10/02/17 15:54 Urine Color YELLOW 10/02/17 15:54 Urine Clarity CLEAR (CLEAR) 10/02/17 15:54 Urine pH 7.0 (4.6 - 8.0) 10/02/17 15:54 Ur Specific [place] 1.010 (1.005-1.030) 10/02/17 15:54 Urine Protein NEGATIVE mg/dL (NEGATIVE) 10/02/17 15:54 Urine Glucose (UA) NEGATIVE mg/dL (NEGATIVE) 10/02/17 15:54 Urine Ketones TRACE mg/dL (NEGATIVE) 10/02/17 15:54 Urine Blood NEGATIVE (NEGATIVE) 10/02/17 15:54 Urine Nitrate NEGATIVE (NEGATIVE) 10/02/17 15:54 Urine Bilirubin NEGATIVE (NEGATIVE) 10/02/17 15:54 Urine Urobilinogen 2.0 E.U./dL (0.2 - 1.0) 10/02/17 15:54 Ur Leukocyte Esterase NEGATIVE (NEGATIVE) 10/02/17 15:54 Urine RBC NONE SEEN /hpf (0-5) 10/02/17 15:54 Urine WBC NONE SEEN /hpf (0-5) 10/02/17 15:54 Ur Epithelial Cells NONE SEEN /lpf (FEW) 10/02/17 15:54 Urine Bacteria NONE SEEN /hpf (NONE SEEN) 10/02/17 15:54 - Physical Exam Vitals and I&O: Vital Signs Temp 97.6 F 10/08/17 05:02 Pulse 86 10/08/17 09:25 Resp 20 10/08/17 05:02 BP 126/57 10/08/17 09:25 Pulse Ox 98 10/08/17 05:02 Intake & Output 10/07/17 10/08/17 10/08/17 18:59 06:59 18:59 Intake Total 0 Balance 0 Weight (lbs) 27.669 kg 27.669 kg Intake: Oral 0 Other: # Voids 3 0 # Bowel Movements 2 1 Active Medications: Current Medications Escitalopram Oxalate (Lexapro) 5 mg PO DAILY SAMY PRN Reason: Protocol Stop: 12/03/17 16:59 Last Admin: 10/08/17 09:25 Dose: 5 mg Haloperidol (Haldol) 0.5 mg PO BID SAMY PRN Reason: Protocol Stop: 12/06/17 11:29 Last Admin: 10/08/17 09:26 Dose: 0.5 mg Heparin Sodium (Porcine) (Heparin) 5,000 units SUBQ Q12H SAMY Stop: 12/02/17 20:59 Last Admin: 10/08/17 09:34 Dose: 5,000 units Dextrose/Sodium Chloride (D5-0.45ns) 1,000 mls @ 75 mls/hr IV .[id number] SAMY Stop: 12/01/17 22:59 Last Admin: 10/07/17 11:05 Dose: 75 mls/hr Lactulose (Cephulac) 20 gm PO BID SAMY Stop: 12/05/17 08:59 Last Admin: 10/08/17 09:25 Dose: 20 gm Lisinopril (Zestril) 5 mg PO DAILY SAMY Stop: 12/04/17 08:59 Last Admin: 10/08/17 09:25 Dose: 5 mg Lorazepam (Ativan) 1 mg PO Q6HR PRN; Protocol PRN Reason: Anxiety Stop: 12/03/17 18:57 Lorazepam (Ativan) 0.5 mg PO DAILY SAMY PRN Reason: Protocol Stop: 12/04/17 08:59 Last Admin: 10/08/17 09:26 Dose: 0.5 mg Lorazepam (Ativan) 1 mg IVP Q6HR PRN; Protocol PRN Reason: Agitation Stop: 12/04/17 00:12 Last Admin: 10/05/17 00:25 Dose: 1 mg Megestrol Acetate (Megace) 400 mg PO BID SAMY PRN Reason: Protocol Stop: 12/04/17 08:59 Last Admin: 10/08/17 09:25 Dose: 400 mg Mirtazapine (Remeron) 7.5 mg PO HS SAMY PRN Reason: Protocol Stop: 12/02/17 20:59 Last Admin: 10/07/17 21:32 Dose: Not Given Miscellaneous (Vte Chemical Prophylaxis Screen/ Admission) 1 ea MC PRN PRN PRN Reason: PROTOCOL Stop: 12/02/17 17:00 Pantoprazole Sodium (Protonix) 40 mg IVP QDAC SAMY Stop: 12/02/17 13:14 Last Admin: 10/08/17 06:43 Dose: 40 mg Sodium Phosphate (Fleet Enema) 135 ml RC PRN PRN PRN Reason: Constipation Stop: 12/04/17 18:00 Last Admin: 10/05/17 22:21 Dose: 135 ml General: Alert HEENT: Atraumatic Cardiovascular: Regular rate Lungs: Clear to auscultation Abdomen: Soft - Procedures Procedures: Procedures Procedure Code Date EGD BIOPSY SINGLE/MULTIPLE 26350 10/02/17 EXCISION OF STOMACH, ENDO, DIAGN [id number] 10/02/17 Nutritional Asmnt/Malnutr-PDOC - Dietary Evaluation Malnutrition Findings (Please click <Entered> for more info): Nutritional Asmnt/Malnutrition Start: 10/03/17 16: 43 Text: Status: Complete Freq: Document 10/06/17 18:14 CHANTELLE (Rec: 10/06/17 18:16 [email or web address] [email or web address]) Nutritional Asmnt/Malnutrition Patient General Information Nutritional Screening High Risk Diagnosis malnut
--- NOTE | 2017-10-08 12:33 | General Progress Note ---
Subjective - Review of Systems Service Date: 10/08/17 Objective - Results Result Diagrams: 10/06/17 09:45 10/07/17 12:12 Recent Labs: Laboratory Last Values WBC 11.7 Th/cmm (4.8-10.8) H D 10/06/17 09:45 RBC 3.81 Mil/cmm (3.80-5.20) 10/06/17 09:45 Hgb 12.6 gm/dL (12-16) 10/06/17 09:45 Hct 37.1 % (41.0-60) L 10/06/17 09:45 MCV 97.4 fl (81-100) 10/06/17 09:45 MCH 33.1 pg (27.0-31.0) H 10/06/17 09:45 MCHC Differential 33.9 pg (28.0-36.0) 10/06/17 09:45 RDW 13.1 % (11.5-20.0) 10/06/17 09:45 Plt Count 285 Th/cmm (150-400) D 10/06/17 09:45 MPV 6.7 fl 10/06/17 09:45 Neutrophils % 84.8 % (40.0-80.0) H 10/04/17 06:00 Band Neutrophils % 10 % (0-10) 10/02/17 17:58 Lymphocytes % 7.0 % (20.0-50.0) L 10/04/17 06:00 Monocytes % 7.3 % (2.0-10.0) 10/04/17 06:00 Eosinophils % 0.3 % (0.0-5.0) 10/04/17 06:00 Basophils % 0.6 % (0.0-2.0) 10/04/17 06:00 Neutrophils (Manual) 79 % (40-80) 10/02/17 17:58 Lymphocytes 5 % (20-50) L 10/02/17 17:58 Monocytes 5 % (2-10) 10/02/17 17:58 Eosinophils 1 % (0-5) 10/02/17 17:58 Basophils 0 % (0-3) 10/02/17 17:58 Platelet Estimate ADEQUATE (NORMAL) 10/02/17 17:58 Platelet Morphology NORMAL (NORMAL) 10/02/17 17:58 RBC Morph Micro Appear NORMAL (NORMAL) 10/02/17 17:58 PT 11.6 SECONDS (9.5-11.5) H 10/04/17 06:00 INR 1.11 (0.5-1.4) 10/04/17 06:00 Sodium 136 mEq/L (136-145) 10/07/17 12:12 Potassium 3.7 mEq/L (3.5-5.1) 10/07/17 12:12 Chloride 108 mEq/L (98-107) H 10/07/17 12:12 Carbon Dioxide 21.7 mEq/L (21.0-31.0) 10/07/17 12:12 Anion Gap 10.0 (7.0-16.0) 10/07/17 12:12 BUN 5 mg/dL (7-25) L 10/07/17 12:12 Creatinine 0.4 mg/dL (0.6-1.2) L 10/07/17 12:12 Est GFR ( Amer) TNP 10/07/17 12:12 Est GFR (Non-Af Amer) TNP 10/07/17 12:12 BUN/Creatinine Ratio 12.5 10/07/17 12:12 Glucose 152 mg/dL (70-105) H 10/07/17 12:12 Calcium 8.1 mg/dL (8.6-10.3) L 10/07/17 12:12 Magnesium 1.8 mg/dL (1.9-2.7) L 10/06/17 09:45 Total Bilirubin 0.8 mg/dL (0.3-1.0) 10/07/17 12:12 AST 14 U/L (13-39) 10/07/17 12:12 ALT 9 U/L (7-52) 10/07/17 12:12 Alkaline Phosphatase 66 U/L (34-104) 10/07/17 12:12 Total Protein 4.8 gm/dL (6.0-8.3) L 10/07/17 12:12 Albumin 2.7 gm/dL (3.7-5.3) L 10/07/17 12:12 Globulin 2.1 gm/dL 10/07/17 12:12 Albumin/Globulin Ratio 1.3 (1.0-1.8) 10/07/17 12:12 Triglycerides 113 mg/dL (<150) 10/03/17 06:10 Cholesterol 159 mg/dL (<200) 10/03/17 06:10 LDL Cholesterol Direct 104 mg/dL (75-193) 10/03/17 06:10 HDL Cholesterol 43 mg/dL (23-92) 10/03/17 06:10 Carcinoembryonic Ag 8.6 ng/mL (0.0-4.7) H 10/03/17 06:10 CA 19-9 Antigen 35 U/mL (0-35) 10/02/17 17:58 CA 27-29 Serial Monitr 7.7 U/mL (0.0-38.6) 10/04/17 06:00 CA 125 Antigen 23.0 U/mL (0.0-38.1) 10/02/17 17:58 TSH 2.82 uIU/ml (0.34-5.60) 10/03/17 06:10 Urine Source RANDOM 10/02/17 15:54 Urine Color YELLOW 10/02/17 15:54 Urine Clarity CLEAR (CLEAR) 10/02/17 15:54 Urine pH 7.0 (4.6 - 8.0) 10/02/17 15:54 Ur Specific [place] 1.010 (1.005-1.030) 10/02/17 15:54 Urine Protein NEGATIVE mg/dL (NEGATIVE) 10/02/17 15:54 Urine Glucose (UA) NEGATIVE mg/dL (NEGATIVE) 10/02/17 15:54 Urine Ketones TRACE mg/dL (NEGATIVE) 10/02/17 15:54 Urine Blood NEGATIVE (NEGATIVE) 10/02/17 15:54 Urine Nitrate NEGATIVE (NEGATIVE) 10/02/17 15:54 Urine Bilirubin NEGATIVE (NEGATIVE) 10/02/17 15:54 Urine Urobilinogen 2.0 E.U./dL (0.2 - 1.0) 10/02/17 15:54 Ur Leukocyte Esterase NEGATIVE (NEGATIVE) 10/02/17 15:54 Urine RBC NONE SEEN /hpf (0-5) 10/02/17 15:54 Urine WBC NONE SEEN /hpf (0-5) 10/02/17 15:54 Ur Epithelial Cells NONE SEEN /lpf (FEW) 10/02/17 15:54 Urine Bacteria NONE SEEN /hpf (NONE SEEN) 10/02/17 15:54 Helicobacter pylori Ab NEG (NEGATIVE) 10/07/17 09:35 - Physical Exam Vitals and I&O: Vital Signs Temp 97.3 F 10/08/17 08:00 Pulse 86 10/08/17 09:25 Resp 20 10/08/17 08:00 BP 126/57 10/08/17 09:25 Pulse Ox 98 10/08/17 08:00 Intake & Output 10/07/170710/08/17 18:59 06:59 18:59 Intake Total 0 Balance 0 Weight (lbs) 27.669 kg 27.669 kg Intake: Oral 0 Other: # Voids 3 0 # Bowel Movements 2 1 Active Medications: Current Medications Escitalopram Oxalate (Lexapro) 5 mg PO DAILY SAMY PRN Reason: Protocol Stop: 12/03/17 16:59 Last Admin: 10/08/17 09:25 Dose: 5 mg Haloperidol (Haldol) 0.5 mg PO BID SAMY PRN Reason: Protocol Stop: 12/06/17 11:29 Last Admin: 10/08/17 09:26 Dose: 0.5 mg Heparin Sodium (Porcine) (Heparin) 5,000 units SUBQ Q12H SAMY Stop: 12/02/17 20:59 Last Admin: 10/08/17 09:34 Dose: 5,000 units Dextrose/Sodium Chloride (D5-0.45ns) 1,000 mls @ 75 mls/hr IV .[id number] SAMY Stop: 12/01/17 22:59 Last Admin: 10/07/17 11:05 Dose: 75 mls/hr Lactulose (Cephulac) 20 gm PO BID SAMY Stop: 12/05/17 08:59 Last Admin: 10/08/17 09:25 Dose: 20 gm Lisinopril (Zestril) 5 mg PO DAILY SAMY Stop: 12/04/17 08:59 Last Admin: 10/08/17 09:25 Dose: 5 mg Lorazepam (Ativan) 1 mg PO Q6HR PRN; Protocol PRN Reason: Anxiety Stop: 12/03/17 18:57 Lorazepam (Ativan) 0.5 mg PO DAILY SAMY PRN Reason: Protocol Stop: 12/04/17 08:59 Last Admin: 02/07/18 09:26 Dose: 0.5 mg Lorazepam (Ativan) 1 mg IVP Q6HR PRN; Protocol PRN Reason: Agitation Stop: 12/04/17 00:12 Last Admin: 10/05/17 00:25 Dose: 1 mg Megestrol Acetate (Megace) 400 mg PO BID SAMY PRN Reason: Protocol Stop: 12/04/17 08:59 Last Admin: 10/08/17 09:25 Dose: 400 mg Mirtazapine (Remeron) 7.5 mg PO HS SAMY PRN Reason: Protocol Stop: 12/02/17 20:59 Last Admin: 10/07/17 21:32 Dose: Not Given Miscellaneous (Vte Chemical Prophylaxis Screen/ Admission) 1 ea MC PRN PRN PRN Reason: PROTOCOL Stop: 12/02/17 17:00 Pantoprazole Sodium (Protonix) 40 mg IVP QDAC SAMY Stop: 12/02/17 13:14 Last Admin: 10/08/17 06:43 Dose: 40 mg Sodium Phosphate (Fleet Enema) 135 ml RC PRN PRN PRN Reason: Constipation Stop: 12/04/17 18:00 Last Admin: 10/05/17 22:21 Dose: 135 ml General: Alert HEENT: Atraumatic Cardiovascular: Regular rate Lungs: Clear to auscultation Abdomen: Soft Skin: Significant lesion (left breast mass unchanged) - Procedures Procedures: Procedures Procedure Code Date EGD BIOPSY SINGLE/MULTIPLE 68407 10/02/17 EXCISION OF STOMACH, ENDO, DIAGN [id number] 10/02/17 Assessment/Plan - Assessment Assessment: * left breast mass * Hypokalemia corrected refused CT and EGD CA27 normal level No oncology recommendation since pt refused biopsy Nutritional Asmnt/Malnutr-PDOC - Dietary Evaluation Malnutrition Findings (Please click <Entered> for more info): Nutritional Asmnt/Malnutrition Start: 10/03/17 16: 43 Text: Status: Complete Freq: Document 10/06/17 18:14 CHANTELLE (Rec: 10/06/17 18:16 CHANTELLE [email or web address]) Nutritional Asmnt/Malnutrition Patient General Information Nutritional Screening High Risk Diagnosis malnut
[2017-10-08] MEDS: D5-0.45NS 1,000 ML IV SCH (16:26)
[2017-10-08] MEDS ORDERED: Guaifenesin DM 10 ML UDC PO PRN (19:47)
--- NOTE | 2017-10-14 18:48 | Discharge Summary ---
DATE OF DISCHARGE: 10/08/2017 HISTORY: She is an unfortunate female with history of underlying psychosis, malnutrition, anorexia. The patient was hypotensive and also had a left breast mass. The patient was admitted initially at [facility] and was treated and also had abdominal problem and had an EGD done and showed gastritis. FINAL DIAGNOSES: Gastritis, hypertension, hyperlipidemia, left breast mass, history of psychosis. DISPOSITION: The patient was transferred to ____ I will follow the patient. CONDITION AT TIME OF DISCHARGE: Stable. MEDICATIONS: See reconciliation sheet. ACTIVITY: As tolerated. JOB# [id number]
== END 2017-10-08 23:00 | DRG 600 ==
LOC: ER 15:44 → TELE 20:10
PROVIDERS: ADMIT Internal Medicine; ATTEND Internal Medicine
PROC: 0DB68ZX Excision of Stomach, Via Natural or Artificial Opening Endoscopic, Diagnostic (ICD-10-PCS; principal; 2017-10-07)
DX: N61.0 Mastitis without abscess (principal); E41 Nutritional marasmus; I95.9 Hypotension, unspecified; J44.9 Chronic obstructive pulmonary disease, unspecified; F32.3 Major depressive disorder, single episode, severe with psychotic features; F03.90 Unspecified dementia, unspecified severity, without behavioral disturbance, psychotic disturbance, mood disturbance, and anxiety; R13.10 Dysphagia, unspecified; Z68.1 Body mass index [BMI] 19.9 or less, adult; Z53.29 Procedure and treatment not carried out because of patient's decision for other reasons; F29 Unspecified psychosis not due to a substance or known physiological condition; E78.5 Hyperlipidemia, unspecified; E87.6 Hypokalemia; R62.7 Adult failure to thrive; G47.00 Insomnia, unspecified; I10 Essential (primary) hypertension; F41.9 Anxiety disorder, unspecified; Z83.3 Family history of diabetes mellitus; Z80.8 Family history of malignant neoplasm of other organs or systems; Z90.49 Acquired absence of other specified parts of digestive tract; Z88.0 Allergy status to penicillin
CPT/HCPCS: 36415-UA; 71045-TC; 80048-TC; 80053-TC; 80061-TC; 81001-TC; 82378-90; 83735-TC; 84443-TC; 85007-TC; 85025-TC; 85027-TC; 85610-TC; 86300-90; 86301-90; 86304-90; 87086-90; 87338-TC; 93005; 97530; C9113; J1644; J2001; J2060; J2704; J3480; J7040; J7042; X3904; Z7610